=== PATIENT | male | born 1950 ===

== ENCOUNTER 2016-06-10 12:28 | Inpatient (IN) | payer MEDICAID, OTHER ==
[2016-06-10] MEDS ORDERED: Sodium Chloride 0.9% 1,000 ML IV ONE ×2 (12:54)
[2016-06-10 13:24] LABS: VENOUS BLOOD GAS BASE EXCESS 3.6 mmol/L (0.0-2.0); VENOUS BLOOD GAS PCO2 59 mmHg (40-60); VENOUS BLOOD PH 7.33 (7.32-7.43)
[2016-06-10] MEDS ORDERED: Sodium Chloride 0.9% 2,000 ML ONE (13:28)
[2016-06-10] MEDS ORDERED: MOXIFLOXACIN 400 MG/250 ML IVPB STA (13:33)
[2016-06-10] MEDS ORDERED: NS IVPB STA (13:33)
[2016-06-10] MEDS ORDERED: CEFEPIME IVPB STA (13:34)
[2016-06-10] MEDS ORDERED: DEXTROSE IVPB STA (13:34)
--- NOTE | 2016-06-10 13:35 | C.PDOC ---
History Of Present Illness A 65 year old male patient presents to the ED c/o experiencing increased fatigue , cough, and subjective fever for 3 days, according to son. Patient reports that he came back from [place] (driving) 2 days ago due to his brothers . Patient notes that the symptoms are progressively getting worse and was unable to get out of bed today where EMS was called. Patient denies trauma, nausea, vomiting, SOB, LOC, dizziness. Time Seen by Provider: 06/10/16 12:43 Chief Complaint (Nursing): Shortness Of Breath History Per: Patient, Family (son) History/Exam Limitations: clinical condition Onset/Duration Of Symptoms: Days Current Symptoms Are (Timing): Still Present Initiating Event: Emotionaly Upset Severity: Moderate Associated Symptoms: Fever. denies: Dizziness Past Medical History Reviewed: Historical Data, Nursing Documentation, Vital Signs Vital Signs: Last Vital Signs Temp 101 F H 06/10/16 16:28 Pulse 110 H 06/10/16 18:15 Resp 24 06/10/16 18:15 BP 158/64 H 06/10/16 18:15 Pulse Ox 93 L 06/10/16 18:15 - Medical History PMH: COPD, Emphysema, HTN, Hypercholesterolemia Family History: States: Unknown Family Hx - Social History Hx Alcohol Use: No Hx Substance Use: No Review Of Systems Except As Marked, All Systems Reviewed And Found Negative. Constitutional: Positive for: Fever, Weakness (General fatigue). Negative for: Other (Trauma) Respiratory: Positive for: Cough. Negative for: Shortness of Breath Gastrointestinal: Negative for: Nausea, Vomiting Neurological: Negative for: Dizziness, Other (LOC) Psych: Negative for: Suicidal ideation Physical Exam - Physical Exam Appears: Non-toxic, In Acute Distress Skin: Warm, Dry Head: Atraumatic, Normacephalic Eye(s): bilateral: Normal Inspection Cardiovascular: Rhythm Regular, No Murmur Respiratory: No Rales, Rhonchi (Few scattered Rhonchi), No Wheezing Gastrointestinal/Abdominal: Soft, No Tenderness, No Guarding Neurological/Psych: Oriented x3, Slow To Respond With Command Gait: Unable To Assess ED Course And Treatment - Laboratory Results Result Diagrams: 06/10/16 13:21 06/10/16 13:21 ECG Rhythm: Sinus Tachycardia ECG Interpretation: Normal O2 Sat by Pulse Oximetry: 95 (Room air) Pulse Ox Interpretation: Normal - Radiology CXR: Interpreted by Me CXR Interpretation: No: Infiltrates Medical Decision Making Medical Decision Making: Plans: Code sepsis called cultured done abx ordered -EKG -Blood labs -CXR -IV fluids -Reassess and disposition Lactate .9 Pt did have long car ride but symptoms more c/w infection process not PE Pt remained stable in the ED cxr neg ua neg, no source for the fever and elvated wbc's Results discussed with son. Also discussed with dr Villalta - plan admit Disposition - Disposition Disposition: HOSPITALIZED Disposition Time: 16:30 Condition: SERIOUS - Clinical Impression Clinical Impression: Fever, Weakness - Scribe Statement The provider has reviewed the documentation as recorded by the Scribe Shira penn All medical record entries made by the Scribe were at my direction and personally dictated by me. I have reviewed the chart and agree that the record accurately reflects my personal performance of the history, physical exam, medical decision making, and the department course for this patient. I have also personally directed, reviewed, and agree with the discharge instructions and disposition.
[2016-06-10 13:36] LABS: BASO # 0.1 K/uL (0.0-0.2); BASO % 0.4 % (0.0-2.0); EOS % 0.2 % (0.0-4.0); HEMATOCRIT 40.3 % (35.0-51.0); LYMPH # 1.2 K/uL (1.0-4.3); LYMPH % 8.5 % (20.0-40.0); MEAN CELL VOLUME 92.7 fL (80.0-94.0); MEAN CORPUSCULAR HEMOGLOBIN 30.4 pg (27.0-31.0); MEAN CORPUSCULAR HGB CONC 32.8 g/dL (33.0-37.0); MEAN PLATELET VOLUME 7.9 fL (7.2-11.7); MONO # 1.7 K/uL (0.0-0.8); MONO % 11.9 % (0.0-10.0); PLATELET COUNT 270 K/uL (130-400); WHITE BLOOD COUNT 14.4 K/uL (4.8-10.8)
[2016-06-10 13:44] LABS: CHLORIDE 96 mmol/L (98-107); INR 1.2; POTASSIUM 3.8 mmol/L (3.6-5.2); SODIUM 138 mmol/L (132-148)
[2016-06-10 13:46] LABS: ALB/GLOB RATIO 1.2 (1.0-2.1); AST/SGOT 17 U/L (17-59); CARBON DIOXIDE 29 mmol/L (22-30); GFR AFRICAN-AMERICAN > 60; TOTAL PROTEIN 6.8 g/dL (6.3-8.3)
[2016-06-10 13:47] LABS: ALKALINE PHOSPHATASE 76 U/L (38-126); ALT/SGPT 16 U/L (21-72); BLOOD UREA NITROGEN 17 mg/dL (9-20); CALCIUM 8.1 mg/dl (8.6-10.4); GLUCOSE,RANDOM 230 mg/dL (75-110)
[2016-06-10 14:04] LABS: NEUTROPHIL 75 % (50-75); REACTIVE LYMPHOCYTES 1 % (0-0); TOTAL CELLS COUNTED 100
[2016-06-10] MEDS ORDERED: Moxifloxacin IV 400mg/250ml NS 400 MG/250 ML BAG IVPB ONE ×2 (14:52→15:23)
[2016-06-10 15:03] LABS: RBC URINE 5 /hpf (0-3); URINE BACTERIA RARE (<OCC); URINE BILIRUBIN NEGATIVE (NEGATIVE); URINE BLOOD NEGATIVE (NEGATIVE); URINE COLOR Yellow (YELLOW); URINE GLUCOSE (UA) 2+ mg/dL (Normal); URINE KETONE NEGATIVE (NEGATIVE); URINE LEUKOCYTE ESTERASE NEG Leu/uL (Negative); URINE PROTEIN 2+ mg/dL (NEGATIVE); WBC URINE 4 /hpf (0-5)
[2016-06-10 15:51] LABS: VENOUS BLOOD GAS BASE EXCESS -1.1 mmol/L (0.0-2.0); VENOUS BLOOD GAS PCO2 55 mmHg (40-60); VENOUS BLOOD PH 7.29 (7.32-7.43)
[2016-06-10] MEDS ORDERED: Albuterol-Ipratrop 3 mg / 0.5 (3 ml) UD ONE (16:07)
[2016-06-10] MEDS ORDERED: Albuterol-Ipratrop 3 mg / 0.5 (3 ml) UD INH STA (16:10)
--- NOTE | 2016-06-10 16:13 | RAD ---
HISTORY: Sepsis Patient COMPARISON: None available. TECHNIQUE: Chest, one view. FINDINGS: LUNGS: Bilateral hilar prominence. No focal consolidation. Please note that chest x-ray has limited sensitivity for the detection of pulmonary masses. PLEURA: No significant pleural effusion identified. No definite pneumothorax . CARDIOVASCULAR: The cardiomediastinal silhouette appears within normal limits of size. OSSEOUS STRUCTURES: No acute osseous abnormality identified. VISUALIZED UPPER ABDOMEN: Unremarkable. OTHER FINDINGS: None. IMPRESSION: Bilateral hilar prominence. No focal consolidation, significant pleural effusion, or definite pneumothorax identified.
--- NOTE | 2016-06-10 16:22 | CP.PCM.HP ---
<Aysha Beatty - Last Filed: 06/10/16 17:05> History of Present Illness - History of Present Illness History of Present Illness: CC: "fatigue, emotional distress and cough" HPI: Patient is a 65 year old male with PMHx of COPD, hypercholesterolemia, HTN and DM presenting for fatigue and cough. Most of the history is per patient's son as patient is currently getting a nebulizer treatment and is having trouble keeping his eyes open. Patient returned from his brother's in [place] yesterday. Patient has been very tired and emotionally distressed. Patient had bodyaches yesterday. Patient started coughing yesterday. Cough is productive of yellow phlegm. Patient has had chills and was sweating last night in bed. Patient usually can walk 10 blocks without getting short of breath but has not been able to walk any blocks for past few days. Patient has never been intubated. Patient had flu vaccine this year. Patient noted later that he has not been feeling well ofr a few weeks but has not seen a doctor. Patient's says one of the boarders has been sick. Also of note, patient wet the bed last night. Patient wants nicotine patch to help him quit smoking. Patient denies vision change, headache, chest pain, palpitation, hemoptysis, abdominal pain, nausea, vomiting, diarrhea, constipation, dysuria, rash, back pain and easy bleeding. SonScottie, is person to contact: [phone] PMD: Garret Allergies: NKDA PMHx: as above PSHx: inguinal hernia repairSocial History: denies ETOH, denies illicit drug use , smokes 10-12 cigarettes per day for 50 years Family Hx: [place] in unknown family member, epilepsy in father, stroke in mother, pancreatic cancer in sister, lung CA in brother Present on Admission - Present on Admission Any Indicators Present on Admission: No Review of Systems - Constitutional Constitutional: Chills, Fatigue, Fever, Night Sweats, Weakness. absent: Headache - EENT Eyes: absent: Blurred Vision, Change in Vision, Loss of Vision Ears: absent: Dizziness Nose/Mouth/Throat: absent: Sore Throat - Cardiovascular Cardiovascular: absent: Chest Pain, Palpitations - Respiratory Respiratory: Cough, Dyspnea, Dyspnea on Exertion, Wheezing, Excessive Mucous Production, Change in Mucous Color. absent: Hemoptysis, Pain with Coughing - Gastrointestinal Gastrointestinal: absent: Abdominal Pain, Constipation, Diarrhea, Hematochezia, Nausea, Vomiting - Genitourinary Genitourinary: absent: Dysuria, Urinary Frequency - Musculoskeletal Musculoskeletal: absent: Back Pain - Integumentary Integumentary: absent: Rash, Skin Pain - Neurological Neurological: absent: Dizziness, Headaches - Endocrine Endocrine: absent: Fatigue, Palpitations - Hematologic/Lymphatic Hematologic: absent: Easy Bleeding Past Patient History - Past Medical History & Family History Past Medical History?: Yes Pertinent Family History: [place] in unknown family member, epilepsy in father, stroke in mother, pancreatic cancer in sister, lung CA in brother - Past Social History Smoking Status: Heavy Smoker > 10 Cigarettes Daily Alcohol: None Drugs: Denies Home Situation {Lives}: With Family - CARDIAC Hx Hypercholesterolemia: Yes Hx Hypertension: Yes - PULMONARY Hx Chronic Obstructive Pulmonary Disease (COPD): Yes Hx Emphysema: Yes - ENDOCRINE/METABOLIC Hx Endocrine Disorders: Yes Hx Diabetes Mellitus Type 1: Yes - PSYCHIATRIC Hx Substance Use: No - SURGICAL HISTORY Hx Surgeries: Yes Hx Herniorrhaphy: Yes (INGUINAL) Meds Allergies/Adverse Reactions: Allergies Allergy/AdvReac Type Severity Reaction Status Date / Time No Known Allergies Allergy Verified 06/10/16 13:13 Physical Exam - Constitutional Appears: Non-toxic - Head Exam Head Exam: NORMAL INSPECTION - Eye Exam Eye Exam: Normal appearance - ENT Exam ENT Exam: Mucous Membranes Moist - Respiratory Exam Respiratory Exam: Accessory Muscle Use, Rhonchi, Wheezes, Respiratory Distress. absent: Rales - Cardiovascular Exam Cardiovascular Exam: REGULAR RHYTHM, +S1, +S2. absent: Gallop, JVD, Rubs, Systolic Murmur - GI/Abdominal Exam GI & Abdominal Exam: Normal Bowel Sounds, Soft. absent: Distended, Firm, Tenderness - Extremities Exam Extremities exam: Negative for: pedal edema - Neurological Exam Neurological exam: Alert, Oriented x3 - Psychiatric Exam Psychiatric exam: Normal Affect, Normal Mood - Skin Skin Exam: Normal Color, Warm Results - Vital Signs Recent Vital Signs: Last Vital Signs Temp 101.8 F H 06/10/16 13:03 Pulse 115 H 06/10/16 16:12 Resp 22 06/10/16 16:12 BP 148/90 06/10/16 16:12 Pulse Ox 95 06/10/16 16:12 - Labs Result Diagrams: 06/10/16 13:21 06/10/16 13:21 Labs: Laboratory Results - last 24 hr 06/10/16 06/10/16 06/10/16 12:45 13:20 13:21 WBC 14.4 H RBC 4.35 L Hgb 13.2 Hct 40.3 MCV 92.7 MCH 30.4 MCHC 32.8 L RDW 14.0 Plt Count 270 MPV 7.9 Neut % (Auto) 79.0 H Lymph % (Auto) 8.5 L Wise % (Auto) 11.9 H Eos % (Auto) 0.2 Baso % (Auto) 0.4 Neut # 11.4 H Lymph # 1.2 Wise # 1.7 H Eos # 0.0 Baso # 0.1 Neutrophils % (Manual) 75 Band Neutrophils % 11 H* Lymphocytes % (Manual) 5 L Reactive Lymphs % 1 H Monocytes % (Manual) 8 Platelet Estimate Normal RBC Morphology Normal PT INR APTT pO2 65 H VBG pH 7.33 VBG pCO2 59 VBG HCO3 27.6 VBG Total CO2 32.9 H VBG O2 Sat (Calc) 95.3 H VBG Base Excess 3.6 H VBG Potassium 3.7 Sodium 136.0 Chloride 101.0 Glucose 235 H Lactate 0.9 Potassium Carbon Dioxide Anion Gap BUN Creatinine Est GFR ( Amer) Est GFR (Non-Af Amer) POC Glucose (mg/dL) 239 H Random Glucose Calcium Magnesium Total Bilirubin AST ALT Alkaline Phosphatase Total Protein Albumin Globulin Albumin/Globulin Ratio Venous Blood Potassium 3.7 Urine Color Urine Clarity Urine pH Ur Specific [place] Urine Protein Urine Glucose (UA) Urine Ketones Urine Blood Urine Nitrate Urine Bilirubin Urine Urobilinogen Ur Leukocyte Esterase Urine WBC (Auto) Urine RBC (Auto) Amorphous Sediment Urine Bacteria Hyaline Casts 06/10/16 06/10/16 06/10/16 13:21 13:21 14:50 WBC RBC Hgb Hct MCV MCH MCHC RDW Plt Count MPV Neut % (Auto) Lymph % (Auto) Wise % (Auto) Eos % (Auto) Baso % (Auto) Neut # Lymph # Wise # Eos # Baso # Neutrophils % (Manual) Band Neutrophils % Lymphocytes % (Manual) Reactive Lymphs % Monocytes % (Manual) Platelet Estimate RBC Morphology PT 12.9 H INR 1.2 APTT 30 pO2 VBG pH VBG pCO2 VBG HCO3 VBG Total CO2 VBG O2 Sat (Calc) VBG Base Excess VBG Potassium Sodium 138 Chloride 96 L Glucose Lactate Potassium 3.8 Carbon Dioxide 29 Anion Gap 18 BUN 17 Creatinine 0.7 L Est GFR ( Amer) > 60 Est GFR (Non-Af Amer) > 60 POC Glucose (mg/dL) Random Glucose 230 H Calcium 8.1 L Magnesium 2.0 Total Bilirubin 1.0 AST 17 ALT 16 L Alkaline Phosphatase 76 Total Protein 6.8 Albumin 3.7 Globulin 3.0 Albumin/Globulin Ratio 1.2 Venous Blood Potassium Urine Color Yellow Urine Clarity Hazy Urine pH 5.0 Ur Specific [place] 1.019 Urine Protein 2+ H Urine Glucose (UA) 2+ H Urine Ketones Negative Urine Blood Negative Urine Nitrate Negative Urine Bilirubin Negative Urine Urobilinogen 2.0 Ur Leukocyte Esterase Neg Urine WBC (Auto) 4 Urine RBC (Auto) 5 H Amorphous Sediment Rare H Urine Bacteria Rare Hyaline Casts 3-5 H 06/10/16 15:35 WBC RBC Hgb Hct MCV MCH MCHC RDW Plt Count MPV Neut % (Auto) Lymph % (Auto) Wise % (Auto) Eos % (Auto) Baso % (Auto) Neut # Lymph # Wise # Eos # Baso # Neutrophils % (Manual) Band Neutrophils % Lymphocytes % (Manual) Reactive Lymphs % Monocytes % (Manual) Platelet Estimate RBC Morphology PT INR APTT pO2 35 VBG pH 7.29 L VBG pCO2 55 VBG HCO3 23.0 VBG Total CO2 28.1 H VBG O2 Sat (Calc) 70.3 H VBG Base Excess -1.1 L VBG Potassium 3.3 L Sodium 142.0 Chloride 111.0 H Glucose 177 H Lactate 0.7 Potassium Carbon Dioxide Anion Gap BUN Creatinine Est GFR ( Amer) Est GFR (Non-Af Amer) POC Glucose (mg/dL) Random Glucose Calcium Magnesium Total Bilirubin AST ALT Alkaline Phosphatase Total Protein Albumin Globulin Albumin/Globulin Ratio Venous Blood Potassium 3.3 L Urine Color Urine Clarity Urine pH Ur Specific [place] Urine Protein Urine Glucose (UA) Urine Ketones Urine Blood Urine Nitrate Urine Bilirubin Urine Urobilinogen Ur Leukocyte Esterase Urine WBC (Auto) Urine RBC (Auto) Amorphous Sediment Urine Bacteria Hyaline Casts Assessment & Plan - Assessment and Plan (Free Text) Assessment: Sepsis [id number], tachycardic in 100s, WBC 14.4 with bandemia of 11 and left shift Lactic acid 0.9 --> 0.7 CXR 06/10/16- bilateral hilar prominence NS 1L bolus x2 NS @75cc/hr F/U Lactic Acid in 3 hours F/U blood culture and sputum culture Admit to telemetry Dyspnea Pneumonia v. COPD exacerbation v. PE v. Lung CA F/U procalcitonin F/U CTA O2 3L via [place] Pulmonology consult - Dr. Galaviz Pneumonia CXR 06/10/16- bilateral hilar prominence F/U CTA Avelox 400mg IVPB daily Obstructive Sleep Apnea CPAP to be titrated by respiratory therapy COPD Duonebs 3ml INH RQ4 EDIE Advair 250/50mg INH BID Singulair 10mg PO HS Spiriva 18mcg INH daily (patient takes albuterol and flovent inhaler at home) Tobacco abuse Nictoine 21/day TD daily H/O HTN Continue home meds: nifedipine 30mg PO daily, lasix 20mg PO daily, atenolol 25mg PO daily, lisinopril 20mg PO daily H/O DM Continue 2 home insulins: Lispro 15U SC QAM Lantus 30U SC QHS RISS Accuchecks F/U HgbA1C Holding home metforming 1000mg PO BID H/O hyperlipidemia Continue equivalent of home med lipitor 40mg PO daily Prophylaxis Protonix 40mg PO daily Hep 5000U SC Q8 SCDs <Ernestina Villalta V - Last Filed: 06/10/16 21:12> Results - Vital Signs Recent Vital Signs: Last Vital Signs Temp 99.9 F H 06/10/16 19:21 Pulse 108 H 06/10/16 20:37 Resp 22 06/10/16 19:21 BP 153/66 H 06/10/16 19:21 Pulse Ox 91 L 06/10/16 19:21 - Labs Result Diagrams: 06/10/16 13:21 06/10/16 13:21 Labs: Laboratory Results - last 24 hr 06/10/16 06/10/16 06/10/16 17:14 18:26 19:15 D-Dimer, Quantitative 369 H Puncture Site Rra pCO2 50 H pO2 64 L HCO3 24.7 ABG pH 7.33 L ABG Total CO2 27.9 ABG O2 Saturation 94.2 L ABG Base Excess -0.1 ABG Hemoglobin 11.5 L ABG Carboxyhemoglobin 2.4 H POC ABG HHb (Measured) 5.5 H ABG Methemoglobin 2.0 [place]on Test Pos Hgb O2 Saturation 90.1 L Liter Flow 3.0 POC Glucose (mg/dL) 217 H Attending/Attestation - Attestation I have personally seen and examined this patient.: Yes I have fully participated in the care of the patient.: Yes I have reviewed all pertinent clinical information: Yes Notes (Text): patient seen, examined, and case discussed with day-time resident. patient seen in [facility] bed 12 on 06/10/16 approximately 4:30PM with patient's and son at bedside. Patient reports three week duration of shortness of breathe, productive cough, non-bloody, with associated "intentional weight loss" about 10lbs in one month. Patient reporting fatigue and dyspnea on exertion, recently flew back from [place] from his brother's . Patient denies recent hospitalization, reports one of the boarders in house is sick, possibly with the flu, denies bug/ bites, denies rash. Patient has history of COPD, use Albuterol and Fluticason, reports he sees senior php developer in [facility], has follow-up in July. Patient also reports he has a history of LYLE, but does not use Bipap/Cpap. Patient also reports he is a current smoker. Discussed admitting orders with day-time resident. Pulmonary consult (Dr. Gar) on board Ordered for CT Chest to evaluate pneumonia, COPD Infectious disease consult (Dr. Hull) on board-->recommended for high dose Rocephin and Azithromycin, and order for influenzae Assessment/Plan 1) Sepsis * Criteria: [id number], tachycardic in 100s, WBC 14.4 with bandemia of 11 and left shift; Criteria: multlobar pneumonia * Lactic acid 0.9 --> 0.7-->f/u lactic acid * CXR 06/10/16- bilateral hilar prominence * NS 1L bolus x2 in the ED * NS @75cc/hr * F/U Lactic Acid in 3 hours * F/U blood culture X2, sputum culture, CT Chest * Admit to telemetry * In the ED, received Maxipime and Avelox; started on Avelox 400mg IV daily and Rocephin 2gram IV daily 2) Pneumonia * CXR 06/10/16- bilateral hilar prominence * CT Angio (06/10/16): suspicious multifocal infectious pneumonia in the lungs b/ l; mild bilateral hilar lymphadenopathy, emphysematous changes * Avelox 400mg IVPB daily and Rocephin 2gram IVq daily * Strep pneumonaie, legionella, mycoplasma igm, influenzae * Florastor 250mg PO bid * Pulmonary (Dr. Lemus) on board * Infectious Disease (Dr. Hull) on board 3) Dyspnea * Differentials to include: Pneumonia v. COPD exacerbation v. PE v. Lung CA * CT Angio (06/10/16): suspicious multifocal infectious pneumonia in the lungs b/ l; mild bilateral hilar lymphadenopathy, emphysematous changes * F/U procalcitonin * O2 3L via [place] * Pulmonology consult - Dr. Galaviz 4) x of Obstructive Sleep Apnea * CPAP to be titrated by respiratory therapy 5) COPD * Duonebs 3ml INH RQ4 EDIE * Advair 250/50mg INH BID * Singulair 10mg PO HS * Spiriva 18mcg INH daily * (patient takes albuterol and flovent inhaler at home) * Pulmonary (Dr. Lemus) on board-->help appreciated * Tobacco counselling to be provided 6) Tobacco abuse * Nictoine 21/day TD daily 7) H/O HTN * Continue home meds: nifedipine 30mg PO daily, lasix 20mg PO daily, discontinue atenolol 25mg PO daily, lisinopril 20mg PO daily * Monitor vital signs 8)H/O DM Continue 2 home insulins: * Lispro 15U SC QAM * Lantus 30U SC QHS * RISS * Accuchecks QAC and HS * F/U HgbA1C in AM * Holding home metformin 1000mg PO BID 9) H/O hyperlipidemia * Continue equivalent of home med lipitor 40mg PO daily 10) Prophylaxis * Protonix 40mg PO daily * Hep 5000U SC Q8 * SCDS * PT/OT eval * Oxygen via nasal cannula vs non-way breather
[2016-06-10] MEDS ORDERED: Sodium Chloride 0.9% 1,000 ML IV SCH (17:00)
[2016-06-10] MEDS ORDERED: Sodium Chloride 0.9% 1,000 ML ONE (17:31)
[2016-06-10] MEDS ORDERED: Iodixanol 320 MG/ML 100 ML BOTTLE IV ONE (18:24)
--- NOTE | 2016-06-10 18:31 | CP.PCM.CON ---
History of Present Illness - History of Present Illness History of Present Illness: A 65 year old male patient presents to the ED c/o experiencing increased fatigue , cough, and subjective fever for 3 days. Patient reports that he came back from [place] (driving) 2 days ago due to brothers . Patient notes that the symptoms are progressively getting worse and was unable to get out of bed today where EMS was called. Review of Systems - Review of Systems All systems: reviewed and no additional remarkable complaints except - Cardiovascular Cardiovascular: Dyspnea - Respiratory Respiratory: Cough, Dyspnea Past Patient History - Past Medical History & Family History Past Medical History?: Yes - Past Social History Smoking Status: Heavy Smoker > 10 Cigarettes Daily Alcohol: None Drugs: Denies Home Situation {Lives}: With Family - CARDIAC Hx Hypercholesterolemia: Yes Hx Hypertension: Yes - PULMONARY Hx Chronic Obstructive Pulmonary Disease (COPD): Yes Hx Emphysema: Yes - ENDOCRINE/METABOLIC Hx Endocrine Disorders: Yes Hx Diabetes Mellitus Type 1: Yes - PSYCHIATRIC Hx Substance Use: No - SURGICAL HISTORY Hx Surgeries: Yes Hx Herniorrhaphy: Yes (INGUINAL) Meds Allergies/Adverse Reactions: Allergies Allergy/AdvReac Type Severity Reaction Status Date / Time No Known Allergies Allergy Verified 06/10/16 13:13 - Medications Medications: Current Medications Acetaminophen (Tylenol 325mg Tab) 650 mg PO Q6H PRN PRN Reason: Fever >100.4 F Last Admin: 06/10/16 16:27 Dose: 650 mg Albuterol/Ipratropium (Duoneb 3 Mg/0.5 Mg (3 Ml) Ud) 3 ml INH RQ4 EDIE Atenolol (Tenormin) 25 mg PO DAILY EDIE Furosemide (Lasix) 20 mg PO DAILY EDIE Heparin Sodium (Porcine) (Heparin) 5,000 units SC Q8 EDIE Moxifloxacin HCl (Avelox Iv 400mg/250ml Ns) 400 mg in 250 mls @ 167 mls/hr IVPB Q24H EDIE Sodium Chloride (Sodium Chloride 0.9%) 1,000 mls @ 75 mls/hr IV .[id number] EDIE Last Admin: 06/10/16 17:30 Dose: 75 mls/hr Insulin Aspart (Novolog) 15 unit SC QAM EDIE Insulin Glargine (Lantus) 30 unit SC HS EDIE Insulin Human Regular (Novolin R) 0 unit SC ACHS EDIE PRN Reason: Protocol Lisinopril (Zestril) 20 mg PO DAILY [facility] Montelukast Sodium (Singulair) 10 mg PO HS [facility] Nicotine (Nicoderm Cq) 1 patch TD DAILY [facility] Nifedipine (Procardia Xl) 30 mg PO DAILY EDIE Pantoprazole Sodium (Protonix Ec Tab) 40 mg PO DAILY [facility] Rosuvastatin Calcium (Crestor) 20 mg PO HS [facility] Tiotropium [place]roy (Spiriva) 18 mcg INH RQ24 EDIE Physical Exam - Head Exam Head Exam: ATRAUMATIC, NORMOCEPHALIC - Eye Exam Eye Exam: Normal appearance - ENT Exam ENT Exam: Mucous Membranes Moist - Respiratory Exam Respiratory Exam: Decreased Breath Sounds - Cardiovascular Exam Cardiovascular Exam: +S1, +S2 - GI/Abdominal Exam GI & Abdominal Exam: Normal Bowel Sounds - Rectal Exam Rectal Exam: Deferred - Neurological Exam Neurological exam: Alert, Oriented x3 - Psychiatric Exam Psychiatric exam: Depressed - Skin Skin Exam: Intact Results - Vital Signs Recent Vital Signs: Last Vital Signs Temp 101 F H 06/10/16 16:28 Pulse 110 H 06/10/16 18:15 Resp 24 06/10/16 18:15 BP 158/64 H 06/10/16 18:15 Pulse Ox 95 06/10/16 18:27 - Labs Result Diagrams: 06/10/16 13:21 06/10/16 13:21 Labs: Laboratory Results - last 24 hr 06/10/16 17:14 D-Dimer, Quantitative 369 H Assessment & Plan (1) Fever Status: Acute (2) COPD exacerbation Status: Acute (3) Pulmonary embolism Status: Suspected
[2016-06-10 19:22] LABS: ABG ALLEN TEST POS; ARTERIAL BLOOD HGB O2 SAT 90.1 % (95.0-98.0); CARBOXYHEMOGLOBIN 2.4 % (0.5-1.5); DRAW SITE RRA; HHB 5.5 % (0.0-5.0)
--- NOTE | 2016-06-10 19:47 | CT ---
EXAM: CT Angiography Chest With Intravenous Contrast CLINICAL HISTORY: 65 years old, male; Condition or disease; Lung condition and disease; Pneumonia and pulmonary embolism; Additional info: Rule out pe, suspicion for b/l hilar pneumonia TECHNIQUE: Axial computed tomographic angiography images of the chest with intravenous contrast using pulmonary embolism protocol. This CT exam was performed using one or more of the following dose reduction techniques: automated exposure control, adjustment of the mA and/or kV according to patient size, and/or use of iterative reconstruction technique. MIP reconstructed images were created and reviewed. Coronal and sagittal reformatted images were created and reviewed. CONTRAST: 100 mL of VISIPAQUE 320 administered intravenously. EXAM DATE/TIME: 06/10/2016 4:59 PM COMPARISON: No relevant prior studies available. FINDINGS: PULMONARY ARTERIES: Contrast opacification of the pulmonary arteries is adequate, and there are no filling defects seen to suggest pulmonary embolism. AORTA: No evidence of aortic dissection. LUNGS: Multiple clusters of tree-in-bud opacities and small ill-defined nodules seen in the lungs bilaterally. In an acute setting, the findings are most likely due to a multifocal infectious bronchiolitis/pneumonia. Moderate diffuse emphysematous changes. No evidence of significant focal consolidation in the lungs. No evidence of diffuse pulmonary vascular congestion. PLEURAL SPACE: No pneumothorax or pleural effusions seen. HEART: Coronary artery calcification. BONES/JOINTS: No acute bony abnormality identified. LYMPH NODES: Mild bilateral hilar lymphadenopathy.There are also multiple small mediastinal lymph nodes seen. No evidence of diffuse pathologic lymphadenopathy. ADRENALS: 3 cm left adrenal lesion. This has imaging features suggestive of a benign lesion, however, it is indeterminate in nature on this exam. Recommend follow-up CT or MR in 12 months. Alternatively, if there is a history of malignancy, consider further evaluation with PET, unenhanced CT or MR. IMPRESSION: - Findings suspicious for a multifocal infectious bronchiolitis/pneumonia in the lungs bilaterally. Followup is recommended, as this has a multinodular component. - Otherwise, no evidence of significant acute process. No evidence of pulmonary embolism. - Mild bilateral hilar lymphadenopathy. This may be reactive in etiology. Again, followup is recommended. - Emphysematous changes. - Incidental left adrenal lesion. See recommendations above. - See above for remaining findings.
[2016-06-10] MEDS: Albuterol-Ipratrop 3 mg / 0.5 (3 ml) UD INH SCH (20:36)
[2016-06-10 21:44] LABS: LEGIONELLA AG URINE NEGATIVE (NEGATIVE)
[2016-06-10] MEDS ORDERED: (Lantus) Insulin Glargine, Recombinant SC SCH (22:00)
[2016-06-10 22:08] LABS: PROCALCITONIN SERUM 0.16 NG/ML (0.19-0.49)
[2016-06-10] MEDS: (Novolin R) Insulin Human Regular 100 units/ml vial SC SCH (22:15)
[2016-06-10] MEDS: Sodium Chloride 0.9% 1,000 ML IV SCH (22:29)
[2016-06-11] MEDS: Albuterol-Ipratrop 3 mg / 0.5 (3 ml) UD INH SCH ×6 (01:00→19:44)
[2016-06-11] MEDS: Sodium Chloride 0.9% 1,000 ML IV SCH ×2 (05:18→22:50)
--- NOTE | 2016-06-11 07:38 | CP.PCM.PN ---
<Ernestina Villalta V - Last Filed: 06/11/16 18:23> Objective - Vital Signs/Intake and Output Vital Signs (last 24 hours): Temp Pulse Resp BP Pulse Ox 101.6 F H 91 H 20 162/83 H 95 06/11/16 16:00 06/11/16 16:00 06/11/16 16:00 06/11/16 16:00 06/11/16 16:00 Intake and Output: 06/11/16 06/11/16 06:59 18:59 Intake Total 1800 Output Total 600 Balance 1200 - Medications Medications: Current Medications Acetaminophen (Tylenol 325mg Tab) 650 mg PO Q6H PRN PRN Reason: Fever >100.4 F Last Admin: 06/11/16 17:04 Dose: 650 mg Albuterol/Ipratropium (Duoneb 3 Mg/0.5 Mg (3 Ml) Ud) 3 ml INH RQ4 [facility] Last Admin: 06/11/16 16:34 Dose: 3 ml Furosemide (Lasix) 20 mg PO DAILY [facility] Last Admin: 06/11/16 10:32 Dose: 20 mg Heparin Sodium (Porcine) (Heparin) 5,000 units SC Q8 [facility] Last Admin: 06/11/16 06:06 Dose: 5,000 units Moxifloxacin HCl (Avelox Iv 400mg/250ml Ns) 400 mg in 250 mls @ 167 mls/hr IVPB Q24H [facility] Last Admin: 06/11/16 17:45 Dose: 167 mls/hr Ceftriaxone Sodium 2 gm/ (Sodium Chloride) 100 mls @ 100 mls/hr IVPB DAILY [facility] Last Admin: 06/11/16 11:01 Dose: 100 mls/hr Sodium Chloride (Sodium Chloride 0.9%) 1,000 mls @ 100 mls/hr IV .Q10H [facility] Last Admin: 06/11/16 05:18 Dose: 100 mls/hr Insulin Glargine (Lantus) 30 unit SC HS [facility] Last Admin: 06/10/16 22:29 Dose: 30 units Insulin Human Regular (Novolin R) 0 unit SC ACHS [facility] PRN Reason: Protocol Last Admin: 06/11/16 18:02 Dose: 3 unit Lisinopril (Zestril) 20 mg PO DAILY [facility] Last Admin: 06/11/16 10:28 Dose: 20 mg Montelukast Sodium (Singulair) 10 mg PO HS [facility] Last Admin: 06/10/16 22:28 Dose: 10 mg Nebivolol (Bystolic) 2.5 mg PO DAILY [facility] Last Admin: 06/11/16 10:28 Dose: 2.5 mg Nicotine (Nicoderm Cq) 1 patch TD DAILY [facility] Last Admin: 06/11/16 10:28 Dose: 1 patch Pantoprazole Sodium (Protonix Ec Tab) 40 mg PO DAILY [facility] Last Admin: 06/11/16 10:29 Dose: 40 mg Rosuvastatin Calcium (Crestor) 20 mg PO HS [facility] Last Admin: 06/10/16 22:28 Dose: 20 mg Tiotropium [place] (Spiriva) 18 mcg INH RQ24 [facility] Last Admin: 06/11/16 10:55 Dose: Not Given - Labs Labs: 06/11/16 08:29 06/11/16 08:29 PT 12.9 SECONDS (9.7-12.2) H 06/10/16 13:21 INR 1.2 06/10/16 13:21 APTT 30 SECONDS (21-34) 06/10/16 13:21 Attending/Attestation - Attestation I have personally seen and examined this patient.: Yes I have fully participated in the care of the patient.: Yes I have reviewed all pertinent clinical information, including history, physical exam and plan: Yes Notes (Text): Patient seen, examined, and case discussed with day-time resident. Patient clinically improved. Patient is awake, alert, appears less lethargic. Patient is conversant and less flushed compared to yesterday. Patient is spiking fevers. Awaiting blood, sputum, and urine cultures. Emphasized to the patient he will need to continue IV antibiotics to cover for multilobar pneumonia Re-emphasized to the patient, will need to stop smoking. Patient's at bedside who helped to re-emphasized to the patient. Assessment/Plan 1) Sepsis * Criteria: [id number], tachycardic in 100s, WBC 14.4 with bandemia of 11 and left shift; Criteria: multillobar pneumonia * Lactic acid 0.9 --> 0.7--> 0.9 * Procalcitonin: 0.19 (low) * CXR 06/10/16- bilateral hilar prominence * NS 1L bolus x2 in the ED * NS @100cc/hr * F/U blood culture X2, sputum culture * Admit to telemetry * In the ED, received Maxipime and Avelox * Abx: Avelox 400mg IV daily and Rocephin 2gram IV daily (active since 06/10/16) * Florastor 250mg PO bid * CT Angio (06/10/16): multifocal infectious bronchiolitis/pneumonia in the lungs bilaterally, no evidence of PE, mild bilateral hilar lymphadenopathy. emphysematous changes, incidental left adrenal lesion * Negative flu, negative Strep, negative legionella, negative Mycoplasma IgM 2) Pneumonia * CXR 06/10/16- bilateral hilar prominence * CT Angio (06/10/16): suspicious multifocal infectious pneumonia in the lungs b/ l; mild bilateral hilar lymphadenopathy, emphysematous changes * Avelox 400mg IVPB daily and Rocephin 2gram IVq daily (active since 06/10/16) * Florastor 250mg PO bid * Pulmonary (Dr. Lemus) on board * Infectious Disease (Dr. Hull) on board * Negative flu, negative Strep, negative legionella, negative Mycoplasma IgM 3) Dyspnea * Differentials to include: Pneumonia v. COPD exacerbation v. PE v. Lung CA * CT Angio (06/10/16): suspicious multifocal infectious pneumonia in the lungs b/ l; mild bilateral hilar lymphadenopathy, emphysematous changes * Procalcitonin: 0.16 (low) * O2 3L via [place] * Pulmonology consult - Dr. Galaviz 4) Hx of Obstructive Sleep Apnea * CPAP to be titrated by respiratory therapy 5) COPD * Duonebs 3ml INH RQ4 [facility] * Advair 250/50mg INH BID * Singulair 10mg PO HS * Spiriva 18mcg INH daily * (patient takes albuterol and flovent inhaler at home) * Pulmonary (Dr. Lemus) on board-->help appreciated * Tobacco counselling to be provided 6) Tobacco abuse * Nictoine 21/day TD daily 7) H/O HTN * Continue home meds: lasix 20mg PO daily, Bystolic 2.5mg Po daily, lisinopril 20mg PO daily * Monitor vital signs 8)H/O DM * Uncontrolled * Hgba1c: 7.9 * increase to Lantus 35U SC QHS * RISS * Accuchecks QAC and HS * Holding home metformin 1000mg PO BID 9) H/O hyperlipidemia * Crestor 20mg subqHS * Order for lipid panel in AM 10) Prophylaxis * Protonix 40mg PO daily * Hep 5000U SC [id number] for DVT ppx * SCDS * PT/OT eval * Oxygen via nasal cannula vs non-way breather 11) Electrolyte imbalance * monitor and replete <Wendy Beckman - Last Filed: 06/11/16 20:02> Subjective - Date & Time of Evaluation Date of Evaluation: 06/11/16 Time of Evaluation: 07:23 - Subjective Subjective: PGY 1 Medicine Note- Dr. Villalta's service Pt seen and examined in no acute distress. Patient spiked a fever overnight as well as early this morning. Patient states that he was able to sleep better overnight. patient's son Scottie present bedside who shared that patient went through a similar experience when patient's sister five years ago. Patient was encouraged to consider quitting smoking to which he is unsure of at this time. Patient denies subjective chills, shortness of breath, nausea, vomiting, diarrhea or constipation at this time. Objective - Vital Signs/Intake and Output Vital Signs (last 24 hours): Temp Pulse Resp BP Pulse Ox 98.5 F 94 H 20 146/72 96 06/11/16 04:00 06/11/16 04:12 06/11/16 04:00 06/11/16 04:00 06/11/16 04:00 Intake and Output: 06/11/16 06/11/16 06:59 18:59 Intake Total 1800 Output Total 600 Balance 1200 - Medications Medications: Current Medications Acetaminophen (Tylenol 325mg Tab) 650 mg PO Q6H PRN PRN Reason: Fever >100.4 F Last Admin: 06/11/16 00:10 Dose: 650 mg Albuterol/Ipratropium (Duoneb 3 Mg/0.5 Mg (3 Ml) Ud) 3 ml INH RQ4 [facility] Last Admin: 06/11/16 05:04 Dose: 3 ml Furosemide (Lasix) 20 mg PO DAILY [facility] Heparin Sodium (Porcine) (Heparin) 5,000 units SC Q8 [facility] Last Admin: 06/11/16 06:06 Dose: 5,000 units Moxifloxacin HCl (Avelox Iv 400mg/250ml Ns) 400 mg in 250 mls @ 167 mls/hr IVPB Q24H [facility] Ceftriaxone Sodium 2 gm/ (Sodium Chloride) 100 mls @ 100 mls/hr IVPB DAILY [facility] Sodium Chloride (Sodium Chloride 0.9%) 1,000 mls @ 100 mls/hr IV .Q10H [facility] Last Admin: 06/11/16 05:18 Dose: 100 mls/hr Insulin Aspart (Novolog) 15 unit SC QAM [facility] Insulin Glargine (Lantus) 30 unit SC [facility] Last Admin: 06/10/16 22:29 Dose: 30 units Insulin Human Regular (Novolin R) 0 unit SC ACHS [facility] PRN Reason: Protocol Last Admin: 06/10/16 22:15 Dose: Not Given Lisinopril (Zestril) 20 mg PO DAILY [facility] Montelukast Sodium (Singulair) 10 mg PO HS [facility] Last Admin: 06/10/16 22:28 Dose: 10 mg Nebivolol (Bystolic) 2.5 mg PO DAILY [facility] Nicotine (Nicoderm Cq) 1 patch TD DAILY [facility] Last Admin: 06/10/16 22:53 Dose: 1 patch Pantoprazole Sodium (Protonix Ec Tab) 40 mg PO DAILY [facility] Rosuvastatin Calcium (Crestor) 20 mg PO [facility] Last Admin: 06/10/16 22:28 Dose: 20 mg Tiotropium [place] (Spiriva) 18 mcg INH RQ24 [facility] - Labs Labs: PT 12.9 SECONDS (9.7-12.2) H 06/10/16 13:21 INR 1.2 06/10/16 13:21 APTT 30 SECONDS (21-34) 06/10/16 13:21 - Constitutional Appears: No Acute Distress - Head Exam Head Exam: ATRAUMATIC, NORMAL INSPECTION, NORMOCEPHALIC - Eye Exam Eye Exam: Conjunctival injection, EOMI, Normal appearance, PERRL Pupil Exam: NORMAL ACCOMODATION Additional comments: bilateral yellow crusting on eyelids ; proptosis of left eye - ENT Exam ENT Exam: Mucous Membranes Moist - Neck Exam Neck Exam: Full ROM - Respiratory Exam Respiratory Exam: NORMAL BREATHING PATTERN. absent: Wheezes - Cardiovascular Exam Cardiovascular Exam: +S1, +S2 - GI/Abdominal Exam GI & Abdominal Exam: Soft, Normal Bowel Sounds - Extremities Exam Extremities Exam: Full ROM, Normal Capillary Refill. absent: Pedal Edema - Back Exam Back Exam: Full ROM - Neurological Exam Neurological Exam: Alert, Awake, Oriented x3 - Psychiatric Exam Psychiatric exam: Normal Affect, Normal Mood - Skin Skin Exam: Dry, Intact, Normal Color, Warm Assessment and Plan - Assessment and Plan (Free Text) Assessment: Sepsis * On admission: Fevers above 100.3, tachycardic in 100s in, WBC 14.4 with bandemia of 11 and left shift; Criteria: multilobar pneumonia * Currently still spiking fevers * Lactic acid 0.9 --> 0.7--> 0.9 * Procalcitonin: 0.19 (low) * CXR 06/10/16- bilateral hilar prominence * NS @100cc/hr * F/U blood culture X2, sputum culture * In the ED, received Maxipime and Avelox * Abx: Avelox 400mg IV daily and Rocephin 2gram IV daily (Started 06/10/16) * Florastor 250mg PO bid for gut protection * CT Angio (06/10/16): multifocal infectious bronchiolitis/pneumonia in the lungs bilaterally, no evidence of PE, mild bilateral hilar lymphadenopathy. emphysematous changes, incidental left adrenal lesion. Refer to full report * influenza, Strep, legionella, Mycoplasma IgM all negative Pneumonia * CXR 06/10/16- bilateral hilar prominence * CT Angio (06/10/16): suspicious multifocal infectious pneumonia in the lungs b/ l; mild bilateral hilar lymphadenopathy, emphysematous changes. Refer to full report * Avelox 400mg IVPB daily and Rocephin 2gm IV daily (Started 06/10/16) * Florastor 250mg PO bid * Pulmonary (Dr. Galaviz) on board. * Infectious Disease (Dr. Hull) on board. Cont IV abx and await cultures/ serologies * Negative flu, negative Strep, negative legionella, negative Mycoplasma IgM Dyspnea * Etiology includes but not limited to: Pneumonia , COPD exacerbation, PE or Lung CA * CT Angio (06/10/16): see aforementioned above * Procalcitonin: 0.16 (low) * O2 3L via [place] Hx of Obstructive Sleep Apnea * CPAP to be titrated by respiratory therapy COPD * Duonebs 3ml INH RQ4 [facility] * Advair 250/50mg INH BID * Singulair 10mg PO HS * Spiriva 18mcg INH daily * (patient takes albuterol and flovent inhaler at home) * F/U Pulm recommendations * Tobacco counselling to be provided. Patient on nicotine patch but does not appear to be interested in quitting per conversation earlier. Tobacco abuse * Nicotine 21/day TD daily * As stated above HTN * Continue home meds: lasix 20mg PO daily, Bystolic 2.5mg Po daily, lisinopril 20mg PO daily. Betablocker changed to be more selective given COPD diagnosis * Monitor DM * Uncontrolled * Hgba1c: 7.9 * Lantus increased to 35U SC QHS * RISS * Accuchecks QAC and HS * Holding home metformin 1000mg PO BID H/O hyperlipidemia * Crestor 20mg @ HS * F/U Lipid panel * Diet and exercise modifications Prophylaxis * Protonix 40mg PO daily * DVT: Hep SC Q8 * SCDS * PT/OT eval- F/U * Oxygen administration therapy, Resp Physical therapy suggested as well
[2016-06-11] MEDS: (Novolin R) Insulin Human Regular 100 units/ml vial SC SCH ×4 (08:41→22:05)
[2016-06-11 08:47] LABS: BASO # 0.1 K/uL (0.0-0.2); BASO % 0.5 % (0.0-2.0); EOS # 0.1 K/uL (0.0-0.7); EOS % 0.7 % (0.0-4.0); HEMATOCRIT 35.2 % (35.0-51.0); LYMPH # 1.3 K/uL (1.0-4.3); LYMPH % 11.8 % (20.0-40.0); MEAN CELL VOLUME 92.6 fL (80.0-94.0); MEAN CORPUSCULAR HEMOGLOBIN 30.4 pg (27.0-31.0); MEAN CORPUSCULAR HGB CONC 32.8 g/dL (33.0-37.0); MEAN PLATELET VOLUME 7.9 fL (7.2-11.7); MONO # 1.3 K/uL (0.0-0.8); WHITE BLOOD COUNT 11.2 K/uL (4.8-10.8)
[2016-06-11 08:48] LABS: CHLORIDE 101 mmol/L (98-107)
[2016-06-11 08:49] LABS: SODIUM 138 mmol/L (132-148)
[2016-06-11 08:51] LABS: AST/SGOT 13 U/L (17-59); BILIRUBIN,TOTAL 0.9 mg/dL (0.2-1.3); BLOOD UREA NITROGEN 11 mg/dL (9-20); CARBON DIOXIDE 24 mmol/L (22-30); GFR AFRICAN-AMERICAN > 60; TOTAL PROTEIN 5.9 g/dL (6.3-8.3)
[2016-06-11 08:52] LABS: ALKALINE PHOSPHATASE 66 U/L (38-126); ALT/SGPT 13 U/L (21-72); CALCIUM 7.2 mg/dl (8.6-10.4); GLUCOSE,RANDOM 224 mg/dL (75-110); MAGNESIUM 2.1 mg/dL (1.6-2.3); PHOSPHOROUS 1.9 mg/dL (2.5-4.5)
[2016-06-11 08:59] LABS: ALB/GLOB RATIO 1.1 (1.0-2.1)
[2016-06-11] MEDS ORDERED: (Novolog) Insulin Aspart, Recombinant 100 u/ml 10 ml vial SC SCH (10:00)
[2016-06-11] MEDS ORDERED: NIFEdipine 30 mg ER Tab PO SCH (10:00)
[2016-06-11] MEDS ORDERED: Sodium Phosphate 15 MMOLE in Sodium Chloride 0.9% 250 ML IVPB ONE (10:18)
[2016-06-11] MEDS: Pantoprazole 40 mg EC Tab PO SCH (10:29)
[2016-06-11] MEDS: Tiotropium 18 mcg Cap For Inhalation INH SCH (10:55)
[2016-06-11] MEDS: cefTRIAXone 2 GM in Sodium Chloride 0.9% 100 ML IVPB SCH (11:01)
[2016-06-11 12:31] LABS: H INFLUENZAE B NOT REQUIRED (NEGATIVE); N MENINGITIS ACY/W135 NOT REQUIRED (NEGATIVE); N MENINGITIS B/ECOLI K1 NOT REQUIRED (NEGATIVE)
--- NOTE | 2016-06-11 12:35 | CARD ---
APPROVED REPORT EXAM: Two-dimensional and M-mode echocardiogram with Doppler and color Doppler. Other Information Quality : PoorRhythm : NSR Technically limited study due to body habitus. INDICATION COPD RISK FACTORS Hypertension Hyperlipidemia Diabetes M-Mode DIMENSIONS Left Atrium (MM)2.43 (2.5-4.0cm)Aortic Root2.84 (2.2-3.7cm) Aortic Cusp Exc.1.44 (1.5-2.0cm) Aortic Valve AoV Peak Kopfjwtm541.0cm/Anya Peak GR.6mmHg Mitral Valve MV E Uzsdzasa724.8cm/sMV A Roudmgux85.3cm/sE/A ratio1.2 TDI E/Lateral E'0.0E/Medial E'0.0 Tricuspid Valve TR Peak [id number]/sTR Peak Gr.[id number] LEFT VENTRICLE The left ventricle is normal size. There is normal left ventricular wall thickness. Left ventricle systolic function is normal. The Ejection Fraction is 60-65%. There is normal LV segmental wall motion. The left ventricular diastolic function is normal. There is no ventricular septal defect visualized. RIGHT VENTRICLE The right ventricle is normal size. The right ventricular systolic function is normal. ATRIA The left atrium size is normal. The right atrium size is normal. AORTIC VALVE The aortic valve is mildly sclerotic. The aortic valve is probably trileaflet. No aortic regurgitation is present. There is no aortic valvular stenosis. MITRAL VALVE The mitral valve is normal in structure. There is no evidence of mitral valve prolapse. There is no mitral valve regurgitation noted. TRICUSPID VALVE The tricuspid valve is normal in structure. There is trace tricuspid regurgitation. Right ventricular systolic pressure is estimated at less than 30 mmHg. There is no pulmonary hypertension. PULMONIC VALVE The pulmonic valve is not well visualized. There is no pulmonic valvular regurgitation. GREAT VESSELS The IVC is normal in size and collapses >50% with inspiration. PERICARDIAL EFFUSION There is no pericardial effusion. <Conclusion> Suboptimal, poor window Left ventricle systolic function is normal. The Ejection Fraction is 60-65%. The left ventricular diastolic function is normal.
[2016-06-11] MEDS: Moxifloxacin IV 400mg/250ml NS 400 MG/250 ML BAG IVPB SCH (17:45)
--- NOTE | 2016-06-11 18:10 | CP.PCM.CON ---
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 who has had CVA in the past PMD: [place] Allergies: NKDA PMHx: COPD, hypercholesterolemia, HTN and DM PSHx: inguinal hernia repairSocial History: denies ETOH, denies illicit drug use , smokes 10-12 cigarettes per day for 50 years Family Hx: [place] in unknown family member, epilepsy in father, stroke in mother, pancreatic cancer in sister, lung CA in brother Review of Systems - Constitutional Constitutional: As Per HPI, Anorexia, Chills, Malaise - EENT Eyes: absent: As Per HPI, Blind Spots, Blurred Vision, Change in Vision, Decreased Night Vision, Diplopia, Discharge, Dry Eye, Exophthalmos, Floaters, Irritation, Itchy Eyes, Loss of Peripheral Vision, Pain, Photophobia, Requires Corrective Lenses, Sees Flashes, Spots in Vision, Tunnel Vision, Other Visual Disturbances, Loss of Vision, Other Ears: absent: As Per HPI, Decreased Hearing, Ear Discharge, Ear Pain, Tinnitus, Abnormal Hearing, Disequilibrium, Dizziness, Other Nose/Mouth/Throat: absent: As Per HPI, Epistaxis, Nasal Congestion, Nasal Discharge, Nasal Obstruction, Nasal Trauma, Nose Pain, Post Nasal Drip, Sinus Pain, Sinus Pressure, Bleeding Gums, Change in Voice, Dental Pain, Dry Mouth, Dysphagia, Halitosis, Hoarsness, Lip Swelling, Mouth Lesions, Mouth Pain, Odynophagia, Sore Throat, Throat Swelling, Tongue Swelling, Facial Pain, Neck Pain, Neck Mass, Other - Cardiovascular Cardiovascular: As Per HPI - Respiratory Respiratory: As Per HPI, Cough. absent: Hemoptysis - Gastrointestinal Gastrointestinal: absent: As Per HPI, Abdominal Pain, Belching, Bloating, Change in Bowel Habits, Change in Stool Character, Coffee Ground Emesis, Constipation, Cramping, Diarrhea, Dyspepsia, Dysphagia, Early Satiety, Excessive Flatus, Fecal Incontinence, Heartburn, Hematemesis, Hematochezia, Loose Stools, Melena, Nausea, Odynophagia, Temesmus, Vomiting, Other - Genitourinary Genitourinary: absent: As Per HPI, Change in Urinary Stream, Difficulty Urinating, Dysuria, Flank Pain, Hematuria, Pyuria, Nocturia, Urinary Incontinence, Urinary Frequency, Urinary Hesitance, Urinary Urgency, Voiding Freq/Small Amts, Freq UTI, Hx Renal/Bladder Calculi, Hx /Renal Surgery, Bladder Distension, Other - Musculoskeletal Musculoskeletal: absent: As Per HPI, Abnormal Gait, Arthralgias, Atrophy, Back Pain, Deformity, Joint Swelling, Limited Range of Motion, Loss of Height, Muscle Cramps, Muscle Weakness, Myalgias, Neck Pain, Numbness, Radiating Pain into Limb, Stiffness, Tingling, Other - Integumentary Integumentary: absent: As Per HPI, Acne, Alopecia, Bleeding Lesions, Change in Hair, Change in Nails, Change in Pigmentation, Changing Lesions, Dry Skin, Erythema, Furuncle, Hirsutism, Lesions, New Lesions, Non-Healing Lesions, Photosensitivity, Pruritus, Rash, Skin Pain, Skin Ulcer, Sores, Striae, Swelling , Unusual Bruising, Wounds, Jaundice, Other - Neurological Neurological: absent: As Per HPI, Abnormal Gait, Abnormal Hearing, Abnormal Movements, Abnormal Speech, Behavioral Changes, Burning Sensations, Confusion, Convulsions, Disequilibrium, Dizziness, Numbness, Focal Weakness, Frequent Falls , Headaches, Lack of Coordination, Loss of Vision, Memory Loss, Paresthesias, Radicular Pain, Restless Legs, Sensory Deficit, Syncope, Tingling, Tremor, Vertigo, Weakness, Other Visual Disturbances, Other - Psychiatric Psychiatric: absent: As Per HPI, Abnormal Sleep Pattern, Anhedonia, Anxiety, Auditory Hallucinations, Behavioral Changes, Change in Appetite, Change in Libido, Confusion, Depression, Difficulty Concentrating, Hallucinations, Homicidal Ideation, Hopelessness, Irritability, Memory Loss, Mood Swings, Panic Attacks, Paranoia, Suicidal Ideation, Visual Hallucinations, Tactile Hallucinations, Other - Endocrine Endocrine: absent: As Per HPI, Change in Body Appearance, Change in Libido, Cold Intolorance, Deepening of Voice, Excessive Sweating, Fatigue, Flushing, Heat Intolorance, Increase in Ring/Shoe/Hat Size, Palpitations, Polydipsia, Polyphagia, Polyuria, Other - Hematologic/Lymphatic Hematologic: absent: As Per HPI, Easy Bleeding, Easy Bruising, Lymphadenopathy, Other Past Patient History - Past Medical History & Family History Past Medical History?: Yes - Past Social History Smoking Status: Heavy Smoker > 10 Cigarettes Daily - CARDIAC Hx Hypercholesterolemia: Yes Hx Hypertension: Yes - PULMONARY Hx Chronic Obstructive Pulmonary Disease (COPD): Yes Hx Emphysema: Yes - NEUROLOGICAL Hx Neurological Disorder: No - HEENT Hx HEENT Problems: No - RENAL Hx Chronic Kidney Disease: No - ENDOCRINE/METABOLIC Hx Endocrine Disorders: Yes Hx Diabetes Mellitus Type 1: Yes - HEMATOLOGICAL/ONCOLOGICAL Hx Blood Disorders: No - INTEGUMENTARY Hx Dermatological Problems: No - MUSCULOSKELETAL/RHEUMATOLOGICAL Hx Musculoskeletal Disorders: No Hx Falls: No - GASTROINTESTINAL Hx Gastrointestinal Disorders: No - GENITOURINARY/GYNECOLOGICAL Hx Genitourinary Disorders: No - PSYCHIATRIC Hx Psychophysiologic Disorder: No Hx Substance Use: No - SURGICAL HISTORY Hx Surgeries: Yes Hx Herniorrhaphy: Yes (INGUINAL) - ANESTHESIA Hx Anesthesia: Yes Hx Anesthesia Reactions: No Hx Malignant Hyperthermia: No Has any member of the family had a problem w/ anesthesia?: No Meds Allergies/Adverse Reactions: Allergies Allergy/AdvReac Type Severity Reaction Status Date / Time No Known Allergies Allergy Verified 06/10/16 13:13 - Medications Medications: Current Medications Acetaminophen (Tylenol 325mg Tab) 650 mg PO Q6H PRN PRN Reason: Fever >100.4 F Last Admin: 06/11/16 17:04 Dose: 650 mg Albuterol/Ipratropium (Duoneb 3 Mg/0.5 Mg (3 Ml) Ud) 3 ml INH RQ4 [facility] Last Admin: 06/11/16 16:34 Dose: 3 ml Furosemide (Lasix) 20 mg PO DAILY [facility] Last Admin: 06/11/16 10:32 Dose: 20 mg Heparin Sodium (Porcine) (Heparin) 5,000 units SC Q8 [facility] Last Admin: 06/11/16 06:06 Dose: 5,000 units Moxifloxacin HCl (Avelox Iv 400mg/250ml Ns) 400 mg in 250 mls @ 167 mls/hr IVPB Q24H [facility] Last Admin: 06/11/16 17:45 Dose: 167 mls/hr Ceftriaxone Sodium 2 gm/ (Sodium Chloride) 100 mls @ 100 mls/hr IVPB DAILY [facility] Last Admin: 06/11/16 11:01 Dose: 100 mls/hr Sodium Chloride (Sodium Chloride 0.9%) 1,000 mls @ 100 mls/hr IV .Q10H [facility] Last Admin: 06/11/16 05:18 Dose: 100 mls/hr Insulin Glargine (Lantus) [address] [facility] Last Admin: 06/10/16 22:29 Dose: 30 units Insulin Human Regular (Novolin R) 0 unit SC [facility] PRN Reason: Protocol Last Admin: 06/11/16 18:02 Dose: 3 unit Lisinopril (Zestril) 20 mg PO DAILY [facility] Last Admin: 06/11/16 10:28 Dose: 20 mg Montelukast Sodium (Singulair) [address] [facility] Last Admin: 06/10/16 22:28 Dose: 10 mg Nebivolol (Bystolic) 2.5 mg PO DAILY [facility] Last Admin: 06/11/16 10:28 Dose: 2.5 mg Nicotine (Nicoderm Cq) 1 patch TD DAILY [facility] Last Admin: 06/11/16 10:28 Dose: 1 patch Pantoprazole Sodium (Protonix Ec Tab) 40 mg PO DAILY [facility] Last Admin: 06/11/16 10:29 Dose: 40 mg Rosuvastatin Calcium (Crestor) [address] [facility] Last Admin: 06/10/16 22:28 Dose: 20 mg Tiotropium [place] (Spiriva) 18 mcg INH RQ24 [facility] Last Admin: 06/11/16 10:55 Dose: Not Given Physical Exam - Constitutional Appears: Non-toxic, No Acute Distress - Head Exam Head Exam: ATRAUMATIC, NORMAL INSPECTION, NORMOCEPHALIC - Eye Exam Eye Exam: PERRL. absent: Scleral icterus - ENT Exam ENT Exam: Mucous Membranes Dry, Normal External Ear Exam - Neck Exam Neck exam: Negative for: Lymphadenopathy, Thyromegaly - Respiratory Exam Respiratory Exam: Decreased Breath Sounds, Rales, Rhonchi - Cardiovascular Exam Cardiovascular Exam: REGULAR RHYTHM, +S1, +S2 - GI/Abdominal Exam GI & Abdominal Exam: Diminished Bowel Sounds, Distended, Soft. absent: Guarding , Rebound, Rigid, Tenderness - Rectal Exam Rectal Exam: Deferred - Exam Exam: NORMAL INSPECTION - Extremities Exam Extremities exam: Positive for: pedal pulses present. Negative for: calf tenderness, pedal edema, tenderness - Back Exam Back exam: absent: CVA tenderness (L), CVA tenderness (R) - Neurological Exam Neurological exam: Alert, CN II-XII Intact, Oriented x3, Reflexes Normal - Psychiatric Exam Psychiatric exam: Normal Mood - Skin Skin Exam: Dry, Intact Results - Vital Signs Recent Vital Signs: Last Vital Signs Temp 101.6 F H 06/11/16 16:00 Pulse 91 H 06/11/16 16:00 Resp 20 06/11/16 16:00 BP 162/83 H 06/11/16 16:00 Pulse Ox 95 06/11/16 16:00 - Labs Result Diagrams: 06/11/16 08:29 06/11/16 08:29 Labs: Laboratory Results - last 24 hr 06/10/16 06/10/16 06/10/16 16:55 18:26 19:15 WBC RBC Hgb Hct MCV MCH MCHC RDW Plt Count MPV Neut % (Auto) Lymph % (Auto) [place] % (Auto) Eos % (Auto) Baso % (Auto) Neut # Lymph # [place] # Eos # Baso # Puncture Site Rra pCO2 50 H pO2 64 L HCO3 24.7 ABG pH 7.33 L ABG Total CO2 27.9 ABG O2 Saturation 94.2 L ABG Base Excess -0.1 ABG Hemoglobin 11.5 L ABG Carboxyhemoglobin 2.4 H POC ABG HHb (Measured) 5.5 H ABG Methemoglobin 2.0 [place] Test Pos Hgb O2 Saturation 90.1 L Liter Flow 3.0 Sodium Potassium Chloride Carbon Dioxide Anion Gap BUN Creatinine Est GFR ( Amer) Est GFR (Non-Af Amer) POC Glucose (mg/dL) 217 H Random Glucose Hemoglobin A1c Lactic Acid Calcium Phosphorus Magnesium Total Bilirubin AST ALT Alkaline Phosphatase NT-Pro-B Natriuret Pep Total Protein Albumin Globulin Albumin/Globulin Ratio Procalcitonin 0.16 L HIV 1&2 Antibody Screen Influenza Typ A,B (EIA) Negative for flu a/b Ur L.pneumophila Ag Negative 06/10/16 06/10/16 06/10/16 21:12 22:02 22:02 WBC RBC Hgb Hct MCV MCH MCHC RDW Plt Count MPV Neut % (Auto) Lymph % (Auto) [place] % (Auto) Eos % (Auto) Baso % (Auto) Neut # Lymph # [place] # Eos # Baso # Puncture Site pCO2 pO2 HCO3 ABG pH ABG Total CO2 ABG O2 Saturation ABG Base Excess ABG Hemoglobin ABG Carboxyhemoglobin POC ABG HHb (Measured) ABG Methemoglobin [place] Test Hgb O2 Saturation Liter Flow Sodium Potassium Chloride Carbon Dioxide Anion Gap BUN Creatinine Est GFR ( Amer) Est GFR (Non-Af Amer) POC Glucose (mg/dL) 250 H Random Glucose Hemoglobin A1c Lactic Acid 0.9 Calcium Phosphorus Magnesium Total Bilirubin AST ALT Alkaline Phosphatase NT-Pro-B Natriuret Pep Total Protein Albumin Globulin Albumin/Globulin Ratio Procalcitonin HIV 1&2 Antibody Screen Negative Influenza Typ A,B (EIA) Ur L.pneumophila Ag 06/11/16 06/11/16 06/11/16 06:40 08:29 08:29 WBC 11.2 H RBC 3.80 L Hgb 11.5 L Hct 35.2 MCV 92.6 MCH 30.4 MCHC 32.8 L RDW 14.0 Plt Count 251 MPV 7.9 Neut % (Auto) 75.0 Lymph % (Auto) 11.8 L [place] % (Auto) 12.0 H Eos % (Auto) 0.7 Baso % (Auto) 0.5 Neut # 8.4 H Lymph # 1.3 [place] # 1.3 H Eos # 0.1 Baso # 0.1 Puncture Site pCO2 pO2 HCO3 ABG pH ABG Total CO2 ABG O2 Saturation ABG Base Excess ABG Hemoglobin ABG Carboxyhemoglobin POC ABG HHb (Measured) ABG Methemoglobin [place] Test Hgb O2 Saturation Liter Flow Sodium Potassium Chloride Carbon Dioxide Anion Gap BUN Creatinine Est GFR ( Amer) Est GFR (Non-Af Amer) POC Glucose (mg/dL) 233 H Random Glucose Hemoglobin A1c Lactic Acid Calcium Phosphorus Magnesium Total Bilirubin AST ALT Alkaline Phosphatase NT-Pro-B Natriuret Pep 186 Total Protein Albumin Globulin Albumin/Globulin Ratio Procalcitonin HIV 1&2 Antibody Screen Influenza Typ A,B (EIA) Ur L.pneumophila Ag 06/11/16 06/11/16 06/11/16 08:29 08:29 12:45 WBC RBC Hgb Hct MCV MCH MCHC RDW Plt Count MPV Neut % (Auto) Lymph % (Auto) [place] % (Auto) Eos % (Auto) Baso % (Auto) Neut # Lymph # [place] # Eos # Baso # Puncture Site pCO2 pO2 HCO3 ABG pH ABG Total CO2 ABG O2 Saturation ABG Base Excess ABG Hemoglobin ABG Carboxyhemoglobin POC ABG HHb (Measured) ABG Methemoglobin [place] Test Hgb O2 Saturation Liter Flow Sodium 138 Potassium 4.0 Chloride 101 Carbon Dioxide 24 Anion Gap 18 BUN 11 Creatinine 0.7 L Est GFR ( Amer) > 60 Est GFR (Non-Af Amer) > 60 POC Glucose (mg/dL) 315 H Random Glucose 224 H Hemoglobin A1c 7.9 H Lactic Acid Calcium 7.2 L Phosphorus 1.9 L Magnesium 2.1 Total Bilirubin 0.9 AST 13 L D ALT 13 L Alkaline Phosphatase 66 NT-Pro-B Natriuret Pep Total Protein 5.9 L Albumin 3.1 L Globulin 2.7 Albumin/Globulin Ratio 1.1 Procalcitonin HIV 1&2 Antibody Screen Influenza Typ A,B (EIA) Ur L.pneumophila Ag 06/11/16 16:59 WBC RBC Hgb Hct MCV MCH MCHC RDW Plt Count MPV Neut % (Auto) Lymph % (Auto) [place] % (Auto) Eos % (Auto) Baso % (Auto) Neut # Lymph # [place] # Eos # Baso # Puncture Site pCO2 pO2 HCO3 ABG pH ABG Total CO2 ABG O2 Saturation ABG Base Excess ABG Hemoglobin ABG Carboxyhemoglobin POC ABG HHb (Measured) ABG Methemoglobin [place] Test Hgb O2 Saturation Liter Flow Sodium Potassium Chloride Carbon Dioxide Anion Gap BUN Creatinine Est GFR ( Amer) Est GFR (Non-Af Amer) POC Glucose (mg/dL) 227 H Random Glucose Hemoglobin A1c Lactic Acid Calcium Phosphorus Magnesium Total Bilirubin AST ALT Alkaline Phosphatase NT-Pro-B Natriuret Pep Total Protein Albumin Globulin Albumin/Globulin Ratio Procalcitonin HIV 1&2 Antibody Screen Influenza Typ A,B (EIA) Ur L.pneumophila Ag Assessment & Plan (1) COPD exacerbation Status: Acute (2) Fever Status: Acute (3) Weakness Status: Acute (4) Pulmonary embolism Status: Suspected - Assessment and Plan (Free Text) Assessment: cont iv rx as per dr Beverly await cultures and serologies
[2016-06-11] MEDS ORDERED: (Lantus) Insulin Glargine, Recombinant SC SCH ×2 (18:35→18:39)
--- NOTE | 2016-06-11 20:02 | CP.PCM.PN ---
Subjective - Date & Time of Evaluation Date of Evaluation: 06/11/16 Time of Evaluation: 19:59 - Subjective Subjective: pt. feels better today but still with cough and congestion, and diff expectorating sputum Objective - Vital Signs/Intake and Output Vital Signs (last 24 hours): Temp Pulse Resp BP Pulse Ox 101.6 F H 91 H 20 162/83 H 95 06/11/16 16:00 06/11/16 16:00 06/11/16 16:00 06/11/16 16:00 06/11/16 16:00 - Medications Medications: Current Medications Acetaminophen (Tylenol 325mg Tab) 650 mg PO Q6H PRN PRN Reason: Fever >100.4 F Last Admin: 06/11/16 17:04 Dose: 650 mg Albuterol/Ipratropium (Duoneb 3 Mg/0.5 Mg (3 Ml) Ud) 3 ml INH RQ4 [facility] Last Admin: 06/11/16 19:44 Dose: 3 ml Furosemide (Lasix) 20 mg PO DAILY [facility] Last Admin: 06/11/16 10:32 Dose: 20 mg Heparin Sodium (Porcine) (Heparin) 5,000 units SC Q8 [facility] Last Admin: 06/11/16 06:06 Dose: 5,000 units Moxifloxacin HCl (Avelox Iv 400mg/250ml Ns) 400 mg in 250 mls @ 167 mls/hr IVPB Q24H [facility] Last Admin: 06/11/16 17:45 Dose: 167 mls/hr Ceftriaxone Sodium 2 gm/ (Sodium Chloride) 100 mls @ 100 mls/hr IVPB DAILY [facility] Last Admin: 06/11/16 11:01 Dose: 100 mls/hr Sodium Chloride (Sodium Chloride 0.9%) 1,000 mls @ 100 mls/hr IV .Q10H [facility] Last Admin: 06/11/16 05:18 Dose: 100 mls/hr Insulin Glargine (Lantus) 35 unit SC HS [facility] Insulin Human Regular (Novolin R) 0 unit SC [facility] PRN Reason: Protocol Last Admin: 06/11/16 18:02 Dose: 3 unit Lisinopril (Zestril) 20 mg PO DAILY [facility] Last Admin: 06/11/16 10:28 Dose: 20 mg Montelukast Sodium (Singulair) 10 mg PO HS [facility] Last Admin: 06/10/16 22:28 Dose: 10 mg Nebivolol (Bystolic) 2.5 mg PO DAILY [facility] Last Admin: 06/11/16 10:28 Dose: 2.5 mg Nicotine (Nicoderm Cq) 1 patch TD DAILY [facility] Last Admin: 06/11/16 10:28 Dose: 1 patch Pantoprazole Sodium (Protonix Ec Tab) 40 mg PO DAILY [facility] Last Admin: 06/11/16 10:29 Dose: 40 mg Rosuvastatin Calcium (Crestor) 20 mg PO HS [facility] Last Admin: 06/10/16 22:28 Dose: 20 mg Tiotropium [place] (Spiriva) 18 mcg INH RQ24 [facility] Last Admin: 06/11/16 10:55 Dose: Not Given - Labs Labs: 06/11/16 08:29 06/11/16 08:29 PT 12.9 SECONDS (9.7-12.2) H 06/10/16 13:21 INR 1.2 06/10/16 13:21 APTT 30 SECONDS (21-34) 06/10/16 13:21 - Constitutional Appears: No Acute Distress - Head Exam Head Exam: ATRAUMATIC, NORMOCEPHALIC - Eye Exam Eye Exam: Normal appearance - ENT Exam ENT Exam: Mucous Membranes Moist - Respiratory Exam Respiratory Exam: Decreased Breath Sounds, Rhonchi - Cardiovascular Exam Cardiovascular Exam: +S1, +S2 - GI/Abdominal Exam GI & Abdominal Exam: Normal Bowel Sounds - Rectal Exam Rectal Exam: Deferred - Neurological Exam Neurological Exam: Alert, Awake, Oriented x3 - Psychiatric Exam Psychiatric exam: Normal Affect, Normal Mood - Skin Skin Exam: Intact Assessment and Plan (1) Fever Status: Resolved (2) COPD exacerbation Status: Acute (3) Pulmonary embolism Status: Ruled-out
[2016-06-11] MEDS: guaiFENesin 600 mg ER Tab PO SCH (22:33)
[2016-06-11] MEDS: (Lantus) Insulin Glargine, Recombinant SC SCH (22:48)
[2016-06-12] MEDS: Albuterol-Ipratrop 3 mg / 0.5 (3 ml) UD INH SCH ×6 (04:47→19:52)
[2016-06-12 07:20] LABS: BASO # 0.1 K/uL (0.0-0.2); BASO % 0.6 % (0.0-2.0); EOS # 0.2 K/uL (0.0-0.7); EOS % 1.4 % (0.0-4.0); HEMATOCRIT 33.7 % (35.0-51.0); LYMPH # 2.1 K/uL (1.0-4.3); LYMPH % 18.5 % (20.0-40.0); MEAN CELL VOLUME 92.7 fL (80.0-94.0); MEAN CORPUSCULAR HEMOGLOBIN 30.4 pg (27.0-31.0); MEAN CORPUSCULAR HGB CONC 32.8 g/dL (33.0-37.0); MEAN PLATELET VOLUME 7.9 fL (7.2-11.7); MONO # 1.5 K/uL (0.0-0.8); MONO % 13.5 % (0.0-10.0); NRBC % 0.2 % (0.0-2.0); RED CELL DISTRIBUTION WIDTH 14.5 % (11.5-14.5); WHITE BLOOD COUNT 11.1 K/uL (4.8-10.8)
[2016-06-12 07:23] LABS: CHLORIDE 100 mmol/L (98-107); SODIUM 137 mmol/L (132-148)
[2016-06-12 07:24] LABS: POTASSIUM 3.7 mmol/L (3.6-5.2)
[2016-06-12 07:25] LABS: CHOLESTEROL 131 mg/dL (0-199)
[2016-06-12 07:26] LABS: ALB/GLOB RATIO 1.1 (1.0-2.1); ALKALINE PHOSPHATASE 59 U/L (38-126); ALT/SGPT 26 U/L (21-72); AST/SGOT 16 U/L (17-59); BILIRUBIN,TOTAL 0.6 mg/dL (0.2-1.3); BLOOD UREA NITROGEN 9 mg/dL (9-20); CARBON DIOXIDE 29 mmol/L (22-30); GFR AFRICAN-AMERICAN > 60; GLUCOSE,RANDOM 149 mg/dL (75-110); TOTAL PROTEIN 5.9 g/dL (6.3-8.3)
[2016-06-12 07:27] LABS: CALCIUM 7.4 mg/dl (8.6-10.4); MAGNESIUM 2.1 mg/dL (1.6-2.3)
[2016-06-12] MEDS: (Novolin R) Insulin Human Regular 100 units/ml vial SC SCH ×4 (08:24→22:00)
--- NOTE | 2016-06-12 08:57 | CP.PCM.PN ---
Subjective - Date & Time of Evaluation Date of Evaluation: 06/12/16 Time of Evaluation: 08:30 - Subjective Subjective: Patient was seen and examined by me. Reviewed previous notes Per discussion with RN, he had to be on venti mask tempprarily due to low SpO2 however later went back to nasal cannula, when I saw the patient he reported that overal he is feeling better - he says about 80% better. He has not tried walking yet. He denied chest pain, denied shortness of breath at rest, denied abdominal pain , denied palpitations, denied headache, denied fever, denied difficulty urinating or difficulty with BMs Yesterday and the day before he had very high fevers, currently non febrile at this time. WBC is decreasing, he previoulsy had bandemia as well. Currently on abx Azithromycin and Rocephin IV. As mentioned before the patient is being treated for sepsis from multilobar pneumonia. We are pending repeat cultures at this time. A CTA was negative for PE. The CT of chest shows a lot of lung findings, history of smoking. Objective - Vital Signs/Intake and Output Vital Signs (last 24 hours): Temp Pulse Resp BP Pulse Ox 99 F 98 H 20 147/63 96 06/12/16 07:00 06/12/16 07:00 06/12/16 07:00 06/12/16 07:00 06/12/16 07:00 Intake and Output: 06/12/16 06/12/16 06:59 18:59 Intake Total 2100 Balance 2100 - Medications Medications: Current Medications Acetaminophen (Tylenol 325mg Tab) 650 mg PO Q6H PRN PRN Reason: Fever >100.4 F Last Admin: 06/11/16 17:04 Dose: 650 mg Albuterol/Ipratropium (Duoneb 3 Mg/0.5 Mg (3 Ml) Ud) 3 ml INH RQ4 [facility] Last Admin: 06/12/16 04:47 Dose: Not Given Furosemide (Lasix) 20 mg PO DAILY [facility] Last Admin: 06/11/16 10:32 Dose: 20 mg Guaifenesin (Mucinex La) 600 mg PO BID [facility] Last Admin: 06/11/16 22:33 Dose: Not Given Heparin Sodium (Porcine) (Heparin) 5,000 units SC Q8 [facility] Last Admin: 06/12/16 06:36 Dose: 5,000 units Moxifloxacin HCl (Avelox Iv 400mg/250ml Ns) 400 mg in 250 mls @ 167 mls/hr IVPB Q24H [facility] Last Admin: 06/11/16 17:45 Dose: 167 mls/hr Ceftriaxone Sodium 2 gm/ (Sodium Chloride) 100 mls @ 100 mls/hr IVPB DAILY [facility] Last Admin: 06/11/16 11:01 Dose: 100 mls/hr Sodium Chloride (Sodium Chloride 0.9%) 1,000 mls @ 100 mls/hr IV .Q10H [facility] Last Admin: 06/11/16 22:50 Dose: 100 mls/hr Insulin Glargine (Lantus) 35 unit SC [facility] Last Admin: 06/11/16 22:48 Dose: 35 u Insulin Human Regular (Novolin R) 0 unit SC [facility] PRN Reason: Protocol Last Admin: 06/12/16 08:24 Dose: 2 unit Lisinopril (Zestril) 20 mg PO DAILY [facility] Last Admin: 06/11/16 10:28 Dose: 20 mg Montelukast Sodium (Singulair) 10 mg PO HS [facility] Last Admin: 06/11/16 22:31 Dose: 10 mg Nebivolol (Bystolic) 2.5 mg PO DAILY [facility] Last Admin: 06/11/16 10:28 Dose: 2.5 mg Nicotine (Nicoderm Cq) 1 patch TD DAILY [facility] Last Admin: 06/11/16 10:28 Dose: 1 patch Pantoprazole Sodium (Protonix Ec Tab) 40 mg PO DAILY [facility] Last Admin: 06/11/16 10:29 Dose: 40 mg Rosuvastatin Calcium (Crestor) 20 mg PO [facility] Last Admin: 06/11/16 22:30 Dose: 20 mg Fluticasone/Salmeterol (Advair Diskus 250/50) 1 puff INH RQ12 [facility] Tiotropium [place] (Spiriva) 18 mcg INH RQ24 [facility] Last Admin: 06/11/16 10:55 Dose: Not Given - Labs Labs: 06/12/16 07:01 06/12/16 07:04 PT 12.9 SECONDS (9.7-12.2) H 06/10/16 13:21 INR 1.2 06/10/16 13:21 APTT 30 SECONDS (21-34) 06/10/16 13:21 - Constitutional Appears: No Acute Distress, Chronically Ill - Head Exam Head Exam: NORMAL INSPECTION - Eye Exam Eye Exam: EOMI, Normal appearance - ENT Exam ENT Exam: Mucous Membranes Moist - Respiratory Exam Respiratory Exam: Decreased Breath Sounds, Rales, Rhonchi - Cardiovascular Exam Cardiovascular Exam: REGULAR RHYTHM - GI/Abdominal Exam GI & Abdominal Exam: Soft, Normal Bowel Sounds - Neurological Exam Neurological Exam: Alert, Awake, Oriented x3 Neuro motor strength exam: Left Upper Extremity: 5, Right Upper Extremity: 5 - Psychiatric Exam Psychiatric exam: Depressed, Flat Affect - Skin Skin Exam: Normal Color, Warm Assessment and Plan - Assessment and Plan (Free Text) Assessment: Sepsis 06/12: WBC is decreased, bandemia improving as well. Yesterday and day before had impressively high fevers. Today does not. Pending blood cultures, they're negative for 24 hrs. Continue on abx at this time. Blood pressure is stable, will decrease IVF today as he is eating and drinking ok. * On admission: Fevers above 100.3, tachycardic in 100s in, WBC 14.4 with bandemia of 11 and left shift; Criteria: multilobar pneumonia * Lactic acid 0.9 --> 0.7--> 0.9 * Procalcitonin: 0.19 (low) * CXR 06/10/16- bilateral hilar prominence * NS @100cc/hr * F/U blood culture X2, sputum culture * In the ED, received Maxipime and Avelox * Abx: Avelox 400mg IV daily and Rocephin 2gram IV daily (Started 06/10/16) * Florastor 250mg PO bid for gut protection * CT Angio (06/10/16): multifocal infectious bronchiolitis/pneumonia in the lungs bilaterally, no evidence of PE, mild bilateral hilar lymphadenopathy. emphysematous changes, incidental left adrenal lesion. Refer to full report * influenza, Strep, legionella, Mycoplasma IgM all negative Pneumonia 06/12: As mentioned above, WBC decreased and bandemia improved. Start PT/OT, out of bed to chair, decrease IVF and repeat CXRAY today. * CXR 06/10/16- bilateral hilar prominence * CT Angio (06/10/16): suspicious multifocal infectious pneumonia in the lungs b/ l; mild bilateral hilar lymphadenopathy, emphysematous changes. Refer to full report * Avelox 400mg IVPB daily and Rocephin 2gm IV daily (Started 06/10/16) * Florastor 250mg PO bid * Pulmonary (Dr. Galaviz) on board. * Infectious Disease (Dr. Hull) on board. Cont IV abx and await cultures/ serologies * Negative flu, negative Strep, negative legionella, negative Mycoplasma IgM Dyspnea 06/12: Negative for PE, pending cultures at this time - patient reports "I feel 80% better" * Etiology includes but not limited to: Pneumonia , COPD exacerbation, PE or Lung CA * CT Angio (06/10/16): see aforementioned above * Procalcitonin: 0.16 (low) * O2 3L via [place] Hx of Obstructive Sleep Apnea * CPAP to be titrated by respiratory therapy COPD * Duonebs 3ml INH RQ4 [facility] * Advair 250/50mg INH BID * Singulair 10mg PO HS * Spiriva 18mcg INH daily * (patient takes albuterol and flovent inhaler at home) * F/U Pulm recommendations * Tobacco counselling to be provided. Patient on nicotine patch but does not appear to be interested in quitting per conversation earlier. Tobacco abuse * Nicotine 21/day TD daily * As stated above HTN 06/12: Mostly in the 140s to 160s systolic, will decrease the IVF today. * Continue home meds: lasix 20mg PO daily, Bystolic 2.5mg Po daily, lisinopril 20mg PO daily. Betablocker changed to be more selective given COPD diagnosis * Monitor DM * Uncontrolled * Hgba1c: 7.9 * Lantus increased to 35U SC QHS * RISS * Accuchecks QAC and HS * Holding home metformin 1000mg PO BID H/O hyperlipidemia * Crestor 20mg @ HS * F/U Lipid panel * Diet and exercise modifications Prophylaxis * Protonix 40mg PO daily * DVT: Hep SC Q8 * SCDS * PT/OT eval- F/U * Oxygen administration therapy, Resp Physical therapy suggested as well
[2016-06-12] MEDS ORDERED: Sodium Chloride 0.9% 1,000 ML IV SCH (09:04)
[2016-06-12] MEDS: Fluticasone-Salmeterol 250-50mcg Diskus INH SCH ×2 (09:06→19:52)
[2016-06-12] MEDS: guaiFENesin 600 mg ER Tab PO SCH ×2 (09:45→17:38)
[2016-06-12] MEDS: Pantoprazole 40 mg EC Tab PO SCH (09:45)
[2016-06-12] MEDS: cefTRIAXone 2 GM in Sodium Chloride 0.9% 100 ML IVPB SCH (09:45)
[2016-06-12] MEDS: Tiotropium 18 mcg Cap For Inhalation INH SCH (09:51)
--- NOTE | 2016-06-12 10:54 | RAD ---
HISTORY: shortness of breath follow up COMPARISON: Chest x-ray performed 06/10/16 TECHNIQUE: Chest, one view. FINDINGS: LUNGS: Minimal patchy bilateral pulmonary opacities consistent with multifocal infectious bronchiolitis or pneumonia demonstrated on CTA of the chest 06/10/16. Persistent bilateral hilar prominence. Emphysematous changes. Please note that chest x-ray has limited sensitivity for the detection of pulmonary masses. PLEURA: No significant pleural effusion identified. No definite pneumothorax . CARDIOVASCULAR: Heart size appears within normal limits. OSSEOUS STRUCTURES: Degenerative changes. VISUALIZED UPPER ABDOMEN: Unremarkable. OTHER FINDINGS: None. IMPRESSION: Minimal patchy bilateral pulmonary opacities consistent with multifocal infectious bronchiolitis or pneumonia demonstrated on CTA of the chest 06/10/16. Persistent bilateral hilar prominence compatible with bilateral hilar adenopathy. Emphysematous changes.
[2016-06-12] MEDS: Moxifloxacin IV 400mg/250ml NS 400 MG/250 ML BAG IVPB SCH (14:24)
[2016-06-12] MEDS: (Lantus) Insulin Glargine, Recombinant SC SCH (21:40)
[2016-06-13] MEDS: Albuterol-Ipratrop 3 mg / 0.5 (3 ml) UD INH SCH ×6 (00:23→19:45)
[2016-06-13 09:08] LABS: BASO # 0.1 K/uL (0.0-0.2); BASO % 0.7 % (0.0-2.0); EOS # 0.4 K/uL (0.0-0.7); EOS % 3.5 % (0.0-4.0); HEMATOCRIT 35.5 % (35.0-51.0); LYMPH # 2.3 K/uL (1.0-4.3); LYMPH % 20.6 % (20.0-40.0); MEAN CELL VOLUME 92.7 fL (80.0-94.0); MEAN CORPUSCULAR HEMOGLOBIN 30.4 pg (27.0-31.0); MEAN CORPUSCULAR HGB CONC 32.8 g/dL (33.0-37.0); MEAN PLATELET VOLUME 7.8 fL (7.2-11.7); MONO # 1.8 K/uL (0.0-0.8); MONO % 15.9 % (0.0-10.0); NRBC % 0.1 % (0.0-2.0); RED CELL DISTRIBUTION WIDTH 13.9 % (11.5-14.5)
--- NOTE | 2016-06-13 09:19 | CP.PCM.PN ---
<Ernestina Villalta V - Last Filed: 06/13/16 12:48> Objective - Vital Signs/Intake and Output Vital Signs (last 24 hours): Temp Pulse Resp BP Pulse Ox 99.2 F 86 19 127/61 92 L 06/13/16 08:21 06/13/16 11:43 06/13/16 08:21 06/13/16 09:24 06/13/16 11:43 - Medications Medications: Current Medications Acetaminophen (Tylenol 325mg Tab) 650 mg PO Q6H PRN PRN Reason: Fever >100.4 F Last Admin: 06/11/16 17:04 Dose: 650 mg Albuterol/Ipratropium (Duoneb 3 Mg/0.5 Mg (3 Ml) Ud) 3 ml INH RQ4 [facility] Last Admin: 06/13/16 11:21 Dose: 3 ml Furosemide (Lasix) 20 mg PO DAILY [facility] Last Admin: 06/13/16 09:24 Dose: 20 mg Guaifenesin (Mucinex La) 600 mg PO BID [facility] Last Admin: 06/13/16 09:25 Dose: 600 mg Heparin Sodium (Porcine) (Heparin) 5,000 units SC Q8 [facility] Last Admin: 06/13/16 06:00 Dose: Not Given Moxifloxacin HCl (Avelox Iv 400mg/250ml Ns) 400 mg in 250 mls @ 167 mls/hr IVPB Q24H [facility] Last Admin: 06/12/16 14:24 Dose: 167 mls/hr Ceftriaxone Sodium 2 gm/ (Sodium Chloride) 100 mls @ 100 mls/hr IVPB DAILY [facility] Last Admin: 06/13/16 11:00 Dose: 100 mls/hr Insulin Glargine (Lantus) 40 unit SC [facility] Insulin Human Regular (Novolin R) 0 unit SC [facility] PRN Reason: Protocol Last Admin: 06/13/16 11:56 Dose: 3 unit Lisinopril (Zestril) 20 mg PO DAILY [facility] Last Admin: 06/13/16 09:24 Dose: 20 mg Montelukast Sodium (Singulair) 10 mg PO HS [facility] Last Admin: 06/12/16 21:40 Dose: 10 mg Nebivolol (Bystolic) 2.5 mg PO DAILY [facility] Last Admin: 06/13/16 09:25 Dose: 2.5 mg Nicotine (Nicoderm Cq) 1 patch TD DAILY [facility] Last Admin: 06/13/16 11:00 Dose: 1 patch Pantoprazole Sodium (Protonix Ec Tab) 40 mg PO DAILY [facility] Last Admin: 06/13/16 09:23 Dose: 40 mg Rosuvastatin Calcium (Crestor) 20 mg PO HS [facility] Last Admin: 06/12/16 21:39 Dose: 20 mg Fluticasone/Salmeterol (Advair Diskus 250/50) 1 puff INH RQ12 [facility] Last Admin: 06/13/16 11:21 Dose: 1 puff Tiotropium [place] (Spiriva) 18 mcg INH RQ24 [facility] Last Admin: 06/13/16 11:21 Dose: 18 mcg - Labs Labs: 06/13/16 08:55 06/13/16 08:55 PT 12.9 SECONDS (9.7-12.2) H 06/10/16 13:21 INR 1.2 06/10/16 13:21 APTT 30 SECONDS (21-34) 06/10/16 13:21 Attending/Attestation - Attestation I have personally seen and examined this patient.: Yes I have fully participated in the care of the patient.: Yes I have reviewed all pertinent clinical information, including history, physical exam and plan: Yes Notes (Text): Patient seen, examined, and case discussed with day-time resident. Patient clinically improving. Patient is awake, alert, appears less lethargic. Patient is conversant with at bedside. Patient reports he was able to go to and from the bathroom. Patient is almost 24 hours without fever. Continue IV abx to cover for multilobar pneumonia. Cultures thus far negative. Re-emphasized to the patient with at bedside to reduce smoking. Per , patient has not felt the need to smoking since being at the hospital PT/OT eval. SARA eval. Will follow-up with ID and Pulm regarding if patient appropriate for IV abx or PO antibiotic for discharge planning Assessment/Plan 1) Sepsis * Criteria: [id number], tachycardic in 100s, WBC 14.4 with bandemia of 11 and left shift; Criteria: multillobar pneumonia * Lactic acid 0.9 --> 0.7--> 0.9 * Procalcitonin: 0.19 (low) * CXR 06/10/16- bilateral hilar prominence * Admit to telemetry * In the ED, received Maxipime and Avelox * Abx: Avelox 400mg IV daily and Rocephin 2gram IV daily (active since 06/10/16) * Florastor 250mg PO bid * CT Angio (06/10/16): multifocal infectious bronchiolitis/pneumonia in the lungs bilaterally, no evidence of PE, mild bilateral hilar lymphadenopathy. emphysematous changes, incidental left adrenal lesion * Chest xray (06/12/16): minimal patchy bilateral pulmonary opacities consistent with multifocal infectious brochiolitis or pneumonia demonstrated of CTA of the chest 06/10/16, persistent bilateral hilar prominence compatible with bilateral hilar adenopathy. Emphysematous changes. * 06/10 Blood Culture: No growth After 48 hours X2 * 06/10/16 Urine culture: no growth * 06/11/16 Sputum: no growth * Negative flu, negative Strep, negative legionella, negative Mycoplasma IgM 2) Pneumonia * Pulmonary (Dr. Lemus) on board * Infectious Disease (Dr. Hull) on board * CXR 06/10/16- bilateral hilar prominence * CT Angio (06/10/16): suspicious multifocal infectious pneumonia in the lungs b/ l; mild bilateral hilar lymphadenopathy, emphysematous changes * Chest xray (06/12/16): minimal patchy bilateral pulmonary opacities consistent with multifocal infectious brochiolitis or pneumonia demonstrated of CTA of the chest 06/10/16, persistent bilateral hilar prominence compatible with bilateral hilar adenopathy. Emphysematous changes. * Avelox 400mg IVPB daily and Rocephin 2gram IVq daily (active since 06/10/16) * Florastor 250mg PO bid * Negative flu, negative Strep, negative legionella, negative Mycoplasma IgM 3) Dyspnea * Differentials to include: Multilobar Pneumonia * CT Angio (06/10/16): suspicious multifocal infectious pneumonia in the lungs b/ l; mild bilateral hilar lymphadenopathy, emphysematous changes * Chest xray (06/12/16): minimal patchy bilateral pulmonary opacities consistent with multifocal infectious brochiolitis or pneumonia demonstrated of CTA of the chest 06/10/16, persistent bilateral hilar prominence compatible with bilateral hilar adenopathy. Emphysematous changes. * Procalcitonin: 0.16 (low) * O2 3L via [place] * Pulmonology consult - Dr. Galaviz * Phenergan w codeine 5ml PO Q 4hour PRN cough * Mucinex 600mg PO bid 4) Hx of Obstructive Sleep Apnea * CPAP to be titrated by respiratory therapy 5) COPD * Pulmonary (Dr. Lemus) on board-->help appreciated * Duonebs 3ml INH RQ4 [facility] * Advair 250/50mg INH BID * Singulair 10mg PO HS * Spiriva 18mcg INH daily * (patient takes albuterol and flovent inhaler at home) * Tobacco counselling to be provided * Phenergan w codeine 5ml PO Q 4hour PRN cough * Mucinex 600mg PO bid 6) Tobacco abuse * Nicotine 21/day TD daily 7) H/O HTN * Continue home meds: lasix 20mg PO daily, Bystolic 2.5mg Po daily, lisinopril 20mg PO daily * Monitor vital signs 8)H/O DM * Uncontrolled * Hgba1c: 7.9 * increase to Lantus 40 U SC QHS * RISS * Accuchecks QAC and HS * Holding home metformin 1000mg PO BID 9) H/O hyperlipidemia * Crestor 20mg subqHS * T, cholestrol: 131, LDL: 71, HDL:30 10) Prophylaxis * Protonix 40mg PO daily * Hep 5000U SC [id number] for DVT ppx * SCDS * PT/OT eval * Oxygen via nasal cannula vs non-way breather 11) Electrolyte imbalance * monitor and replete <Rebecca Rae - Last Filed: 06/13/16 15:02> Subjective - Date & Time of Evaluation Date of Evaluation: 06/13/16 Time of Evaluation: 09:00 - Subjective Subjective: Medicine Progress Note- Dr. Villalta's Service: Patient seen and examined at bedside this AM. Patient is sitting at side of bed in no acute distress. He admits to cough that is non productive. Denies shortness of breath, fevers, chills, nausea, vomiting, diarrhea, constipation. He is ambulating to and from bathroom with no issues. Objective - Vital Signs/Intake and Output Vital Signs (last 24 hours): Temp Pulse Resp BP Pulse Ox 99.2 F 89 19 127/61 92 L 06/13/16 08:21 06/13/16 08:21 06/13/16 08:21 06/13/16 08:21 06/13/16 08:21 - Medications Medications: Current Medications Acetaminophen (Tylenol 325mg Tab) 650 mg PO Q6H PRN PRN Reason: Fever >100.4 F Last Admin: 06/11/16 17:04 Dose: 650 mg Albuterol/Ipratropium (Duoneb 3 Mg/0.5 Mg (3 Ml) Ud) 3 ml INH RQ4 [facility] Last Admin: 06/13/16 04:20 Dose: Not Given Furosemide (Lasix) 20 mg PO DAILY [facility] Last Admin: 06/12/16 09:44 Dose: 20 mg Guaifenesin (Mucinex La) 600 mg PO BID [facility] Last Admin: 06/12/16 17:38 Dose: 600 mg Heparin Sodium (Porcine) (Heparin) 5,000 units SC Q8 [facility] Last Admin: 06/13/16 06:00 Dose: Not Given Moxifloxacin HCl (Avelox Iv 400mg/250ml Ns) 400 mg in 250 mls @ 167 mls/hr IVPB Q24H [facility] Last Admin: 06/12/16 14:24 Dose: 167 mls/hr Ceftriaxone Sodium 2 gm/ (Sodium Chloride) 100 mls @ 100 mls/hr IVPB DAILY [facility] Last Admin: 06/12/16 09:45 Dose: 100 mls/hr Sodium Chloride (Sodium Chloride 0.9%) 1,000 mls @ 40 mls/hr IV .Q24H [facility] Last Admin: 06/12/16 09:47 Dose: 40 mls/hr Insulin Glargine (Lantus) 35 unit SC HS [facility] Last Admin: 06/12/16 21:40 Dose: 35 u Insulin Human Regular (Novolin R) 0 unit SC ACHS [facility] PRN Reason: Protocol Last Admin: 06/12/16 22:00 Dose: Not Given Lisinopril (Zestril) 20 mg PO DAILY [facility] Last Admin: 06/12/16 09:48 Dose: 20 mg Montelukast Sodium (Singulair) 10 mg PO HS [facility] Last Admin: 06/12/16 21:40 Dose: 10 mg Nebivolol (Bystolic) 2.5 mg PO DAILY [facility] Last Admin: 06/12/16 09:44 Dose: 2.5 mg Nicotine (Nicoderm Cq) 1 patch TD DAILY [facility] Last Admin: 06/12/16 09:45 Dose: 1 patch Pantoprazole Sodium (Protonix Ec Tab) 40 mg PO DAILY [facility] Last Admin: 06/12/16 09:45 Dose: 40 mg Rosuvastatin Calcium (Crestor) 20 mg PO HS [facility] Last Admin: 06/12/16 21:39 Dose: 20 mg Fluticasone/Salmeterol (Advair Diskus 250/50) 1 puff INH RQ12 [facility] Last Admin: 06/12/16 19:52 Dose: 1 puff Tiotropium [place] (Spiriva) 18 mcg INH RQ24 [facility] Last Admin: 06/12/16 09:51 Dose: 18 mcg - Labs Labs: 06/13/16 08:55 06/12/16 07:04 PT 12.9 SECONDS (9.7-12.2) H 06/10/16 13:21 INR 1.2 06/10/16 13:21 APTT 30 SECONDS (21-34) 06/10/16 13:21 - Constitutional Appears: No Acute Distress, Chronically Ill - Head Exam Head Exam: NORMAL INSPECTION, NORMOCEPHALIC - Eye Exam Eye Exam: EOMI, Normal appearance - ENT Exam ENT Exam: Mucous Membranes Moist - Respiratory Exam Respiratory Exam: Decreased Breath Sounds, Rales, NORMAL BREATHING PATTERN - Cardiovascular Exam Cardiovascular Exam: REGULAR RHYTHM, +S1, +S2 - GI/Abdominal Exam GI & Abdominal Exam: Soft. absent: Distended, Tenderness - Extremities Exam Extremities Exam: Normal Inspection. absent: Pedal Edema - Back Exam Back Exam: NORMAL INSPECTION - Neurological Exam Neurological Exam: Alert, Awake, Oriented x3 - Skin Skin Exam: Normal Color, Warm Assessment and Plan - Assessment and Plan (Free Text) Assessment: 1) Sepsis * Admitted to [facility]. Criteria: [id number], tachycardic in 100s, WBC 14.4 with bandemia of 11 and left shift on admission. * Source is pneumonia seen on CTA and CXR. In the ED, received Maxipime and Avelox. * Today WBC 11.0. Afebrile overnight. * Lactic acid 0.9 --> 0.7--> 0.9 * Procalcitonin: 0.19 (low) * CXR 06/10/16- bilateral hilar prominence * NS 1L bolus x2 in the ED * D/C NS @40cc/hr * blood culture X2, sputum culture- negative X 48 hours * Abx: Avelox 400mg IV daily and Rocephin 2gram IV daily (active since 06/10/16) * Florastor 250mg PO bid * CT Angio (06/10/16): multifocal infectious bronchiolitis/pneumonia in the lungs bilaterally, no evidence of PE, mild bilateral hilar lymphadenopathy. emphysematous changes, incidental left adrenal lesion * Negative flu, negative Strep, negative legionella, negative Mycoplasma IgM 2) Pneumonia * Repeat CXR 06/12/16 - Minimal patchy bilateral pulmonary opacities consistent with multifocal infectious bronchiolitis or pneumonia demonstrated on CTA of the chest 06/10/16. Persistent bilateral hilar prominence compatible with bilateral hilar adenopathy. Emphysematous changes. * CXR 06/10/16- bilateral hilar prominence * CT Angio (06/10/16): suspicious multifocal infectious pneumonia in the lungs b/ l; mild bilateral hilar lymphadenopathy, emphysematous changes * Avelox 400mg IVPB daily and Rocephin 2gram IVq daily (active since 06/10/16) * Florastor 250mg PO bid * Pulmonary (Dr. Lemus) on board * Infectious Disease (Dr. Hull) on board * Negative flu, negative Strep, negative legionella, negative Mycoplasma IgM 3) Dyspnea * No Dyspnea this AM. * Pulmonology consult - Dr. Galaviz * Differentials to include: Pneumonia v. COPD exacerbation v. PE v. Lung CA * CT Angio (06/10/16): suspicious multifocal infectious pneumonia in the lungs b/ l; mild bilateral hilar lymphadenopathy, emphysematous changes * Procalcitonin: 0.16 (low) * O2 3L via [place] 4) Hx of Obstructive Sleep Apnea * CPAP to be titrated by respiratory therapy 5) COPD * Pulmonary (Dr. Lemus) on board-help appreciated * Duonebs 3ml INH RQ4 [facility] * Advair 250/50mg INH BID * Singulair 10mg PO HS * Spiriva 18mcg INH daily * Tobacco counselling to be provided 6) Tobacco abuse * Nictoine 21/day TD daily 7) H/O HTN * Continue home meds: lasix 20mg PO daily, Bystolic 2.5mg Po daily, lisinopril 20mg PO daily * Monitor vital signs 8)H/O DM * Uncontrolled * Hgba1c: 7.9 * increase to Lantus 35U SC HS--> increased to 40U SC HS 06/13/16. * RISS * Accuchecks QAC and HS * Holding home metformin 1000mg PO BID 9) H/O hyperlipidemia * Crestor 20mg subqHS * TG 124, Chol 131, LDL 71, HDL 30. 10) Prophylaxis * Protonix 40mg PO daily * Hep 5000U SC [id number] for DVT ppx * SCDS * PT/OT eval * Oxygen via nasal cannula vs non-way breather
[2016-06-13] MEDS: (Novolin R) Insulin Human Regular 100 units/ml vial SC SCH ×4 (09:21→22:09)
[2016-06-13] MEDS: Pantoprazole 40 mg EC Tab PO SCH (09:23)
[2016-06-13] MEDS: guaiFENesin 600 mg ER Tab PO SCH ×2 (09:25→17:32)
[2016-06-13 09:28] LABS: CHLORIDE 96 mmol/L (98-107); SODIUM 137 mmol/L (132-148)
[2016-06-13 09:31] LABS: ALB/GLOB RATIO 1.1 (1.0-2.1); ALKALINE PHOSPHATASE 69 U/L (38-126); AST/SGOT 17 U/L (17-59); BILIRUBIN,TOTAL 0.7 mg/dL (0.2-1.3); BLOOD UREA NITROGEN 9 mg/dL (9-20); CARBON DIOXIDE 31 mmol/L (22-30); GFR AFRICAN-AMERICAN > 60; GLUCOSE,RANDOM 214 mg/dL (75-110); TOTAL PROTEIN 6.4 g/dL (6.3-8.3)
[2016-06-13 09:32] LABS: ALT/SGPT 26 U/L (21-72); CALCIUM 8.2 mg/dl (8.6-10.4)
[2016-06-13] MEDS: cefTRIAXone 2 GM in Sodium Chloride 0.9% 100 ML IVPB SCH (11:00)
[2016-06-13] MEDS: Tiotropium 18 mcg Cap For Inhalation INH SCH (11:21)
[2016-06-13] MEDS: Fluticasone-Salmeterol 250-50mcg Diskus INH SCH ×2 (11:21→19:45)
[2016-06-13] MEDS ORDERED: Promethazine/Cod 6.25mg-10mg/5ml Syr UD PO PRN (12:53)
[2016-06-13] MEDS: Moxifloxacin IV 400mg/250ml NS 400 MG/250 ML BAG IVPB SCH (15:40)
--- NOTE | 2016-06-13 16:11 | CP.PCM.PN ---
Subjective - Date & Time of Evaluation Date of Evaluation: 06/13/16 Time of Evaluation: 09:00 - Subjective Subjective: IV RX RENEWED SEEN ON ROUNDS C/O CONSTIPATION Objective - Vital Signs/Intake and Output Vital Signs (last 24 hours): Temp Pulse Resp BP Pulse Ox 99.2 F 74 19 127/61 92 L 06/13/16 08:21 06/13/16 15:30 06/13/16 08:21 06/13/16 09:24 06/13/16 11:43 - Medications Medications: Current Medications Acetaminophen (Tylenol 325mg Tab) 650 mg PO Q6H PRN PRN Reason: Fever >100.4 F Last Admin: 06/11/16 17:04 Dose: 650 mg Albuterol/Ipratropium (Duoneb 3 Mg/0.5 Mg (3 Ml) Ud) 3 ml INH RQ4 [facility] Last Admin: 06/13/16 15:54 Dose: 3 ml Docusate Sodium (Colace) 100 mg PO BID EDIE Docusate Sodium (Colace) 100 mg PO BID EDIE Furosemide (Lasix) 20 mg PO DAILY [facility] Last Admin: 06/13/16 09:24 Dose: 20 mg Guaifenesin (Mucinex La) 600 mg PO BID [facility] Last Admin: 06/13/16 09:25 Dose: 600 mg Heparin Sodium (Porcine) (Heparin) 5,000 units SC Q8 [facility] Last Admin: 06/13/16 13:16 Dose: 5,000 units Moxifloxacin HCl (Avelox Iv 400mg/250ml Ns) 400 mg in 250 mls @ 167 mls/hr IVPB Q24H [facility] Last Admin: 06/12/16 14:24 Dose: 167 mls/hr Ceftriaxone Sodium 2 gm/ (Sodium Chloride) 100 mls @ 100 mls/hr IVPB DAILY [facility] Last Admin: 06/13/16 11:00 Dose: 100 mls/hr Insulin Glargine (Lantus) 40 unit SC HS [facility] Insulin Human Regular (Novolin R) 0 unit SC ACHS [facility] PRN Reason: Protocol Last Admin: 06/13/16 11:56 Dose: 3 unit Lisinopril (Zestril) 20 mg PO DAILY [facility] Last Admin: 06/13/16 09:24 Dose: 20 mg Montelukast Sodium (Singulair) 10 mg PO HS [facility] Last Admin: 06/12/16 21:40 Dose: 10 mg Nebivolol (Bystolic) 2.5 mg PO DAILY [facility] Last Admin: 06/13/16 09:25 Dose: 2.5 mg Nicotine (Nicoderm Cq) 1 patch TD DAILY [facility] Last Admin: 06/13/16 11:00 Dose: 1 patch Pantoprazole Sodium (Protonix Ec Tab) 40 mg PO DAILY [facility] Last Admin: 06/13/16 09:23 Dose: 40 mg Promethazine HCl/Codeine (Phenergan/Codeine Oral Syrup) 5 ml PO Q4 PRN PRN Reason: Cough Rosuvastatin Calcium (Crestor) 20 mg PO HS [facility] Last Admin: 06/12/16 21:39 Dose: 20 mg Fluticasone/Salmeterol (Advair Diskus 250/50) 1 puff INH RQ12 [facility] Last Admin: 06/13/16 11:21 Dose: 1 puff Tiotropium [place] (Spiriva) 18 mcg INH RQ24 [facility] Last Admin: 06/13/16 11:21 Dose: 18 mcg - Labs Labs: 06/13/16 08:55 06/13/16 08:55 PT 12.9 SECONDS (9.7-12.2) H 06/10/16 13:21 INR 1.2 06/10/16 13:21 APTT 30 SECONDS (21-34) 06/10/16 13:21 - Constitutional Appears: Chronically Ill - Head Exam Head Exam: NORMOCEPHALIC - Eye Exam Eye Exam: PERRL. absent: Scleral icterus - ENT Exam ENT Exam: Mucous Membranes Dry - Neck Exam Neck Exam: absent: Lymphadenopathy - Respiratory Exam Respiratory Exam: Decreased Breath Sounds, Rhonchi - Cardiovascular Exam Cardiovascular Exam: REGULAR RHYTHM, +S1, +S2 - GI/Abdominal Exam GI & Abdominal Exam: Distended, Soft. absent: Tenderness - Exam Exam: NORMAL INSPECTION - Extremities Exam Extremities Exam: absent: Calf Tenderness, Pedal Edema - Back Exam Back Exam: absent: CVA tenderness (L), CVA tenderness (R) - Neurological Exam Neurological Exam: Alert, Awake, Oriented x3 - Psychiatric Exam Psychiatric exam: Normal Mood - Skin Skin Exam: Dry Assessment and Plan (1) COPD exacerbation Status: Acute (2) Fever Status: Resolved (3) Weakness Status: Acute (4) Pulmonary embolism Status: Ruled-out
[2016-06-13 16:37] VITALS: RESP 20
[2016-06-13] MEDS: (Lantus) Insulin Glargine, Recombinant SC SCH (22:02)
[2016-06-14] MEDS: Albuterol-Ipratrop 3 mg / 0.5 (3 ml) UD INH SCH ×7 (00:22→23:41)
[2016-06-14 06:44] LABS: CHLORIDE 92 mmol/L (98-107); POTASSIUM 4.1 mmol/L (3.6-5.2); SODIUM 135 mmol/L (132-148)
[2016-06-14 06:46] LABS: BILIRUBIN,TOTAL 0.7 mg/dL (0.2-1.3); CARBON DIOXIDE 35 mmol/L (22-30); GFR AFRICAN-AMERICAN > 60
[2016-06-14 06:47] LABS: ALB/GLOB RATIO 1.1 (1.0-2.1); ALKALINE PHOSPHATASE 75 U/L (38-126); ALT/SGPT 30 U/L (21-72); AST/SGOT 21 U/L (17-59); BASO # 0.1 K/uL (0.0-0.2); BLOOD UREA NITROGEN 10 mg/dL (9-20); CALCIUM 8.3 mg/dl (8.6-10.4); EOS # 0.5 K/uL (0.0-0.7); EOS % 4.3 % (0.0-4.0); GLUCOSE,RANDOM 193 mg/dL (75-110); HEMATOCRIT 36.7 % (35.0-51.0); LYMPH % 18.1 % (20.0-40.0); MAGNESIUM 1.9 mg/dL (1.6-2.3); MEAN CELL VOLUME 91.7 fL (80.0-94.0); MEAN CORPUSCULAR HEMOGLOBIN 30.4 pg (27.0-31.0); MEAN CORPUSCULAR HGB CONC 33.2 g/dL (33.0-37.0); MEAN PLATELET VOLUME 7.8 fL (7.2-11.7); MONO # 1.5 K/uL (0.0-0.8); MONO % 13.3 % (0.0-10.0); PHOSPHOROUS 3.8 mg/dL (2.5-4.5); RED CELL DISTRIBUTION WIDTH 13.8 % (11.5-14.5); TOTAL PROTEIN 6.6 g/dL (6.3-8.3); WHITE BLOOD COUNT 11.1 K/uL (4.8-10.8)
[2016-06-14] MEDS: Tiotropium 18 mcg Cap For Inhalation INH SCH (07:23)
[2016-06-14] MEDS: Fluticasone-Salmeterol 250-50mcg Diskus INH SCH ×2 (07:23→20:04)
[2016-06-14] MEDS: (Novolin R) Insulin Human Regular 100 units/ml vial SC SCH ×4 (07:46→22:00)
[2016-06-14] MEDS: guaiFENesin 600 mg ER Tab PO SCH ×2 (09:42→17:36)
[2016-06-14] MEDS: Pantoprazole 40 mg EC Tab PO SCH (09:43)
[2016-06-14] MEDS: cefTRIAXone 2 GM in Sodium Chloride 0.9% 100 ML IVPB SCH (09:44)
--- NOTE | 2016-06-14 12:19 | CP.PCM.PN ---
<Wendy Beckman - Last Filed: 06/14/16 12:32> Subjective - Date & Time of Evaluation Date of Evaluation: 06/14/16 Time of Evaluation: 07:35 - Subjective Subjective: PGY 1 Med Note- Dr. Villalta's service Patient seen and examined in no acute distress. Patient states that he feels better. He is out of bed to chair but does not ambulate much. Patient denies chest pain, wheezes, palpitations, nausea, vomiting, abdominal pain, paresthesias at this time. Objective - Vital Signs/Intake and Output Vital Signs (last 24 hours): Temp Pulse Resp BP Pulse Ox 99.1 F 86 20 150/75 95 06/14/16 07:35 06/14/16 07:35 06/14/16 07:35 06/14/16 09:42 06/14/16 07:35 Intake and Output: 06/14/16 06/14/16 06:59 18:59 Output Total 300 Balance -300 - Medications Medications: Current Medications Acetaminophen (Tylenol 325mg Tab) 650 mg PO Q6H PRN PRN Reason: Fever >100.4 F Last Admin: 06/14/16 06:06 Dose: 650 mg Albuterol/Ipratropium (Duoneb 3 Mg/0.5 Mg (3 Ml) Ud) 3 ml INH RQ4 [facility] Last Admin: 06/14/16 11:11 Dose: 3 ml Docusate Sodium (Colace) 100 mg PO BID [facility] Last Admin: 06/14/16 09:41 Dose: 100 mg Furosemide (Lasix) 20 mg PO DAILY [facility] Last Admin: 06/14/16 09:42 Dose: 20 mg Guaifenesin (Mucinex La) 600 mg PO BID [facility] Last Admin: 06/14/16 09:42 Dose: 600 mg Heparin Sodium (Porcine) (Heparin) 5,000 units SC Q8 [facility] Last Admin: 06/14/16 06:00 Dose: 5,000 units Moxifloxacin HCl (Avelox Iv 400mg/250ml Ns) 400 mg in 250 mls @ 167 mls/hr IVPB Q24H [facility] Last Admin: 06/13/16 15:40 Dose: 167 mls/hr Ceftriaxone Sodium 2 gm/ (Sodium Chloride) 100 mls @ 100 mls/hr IVPB DAILY [facility] Last Admin: 06/14/16 09:44 Dose: 100 mls/hr Insulin Glargine (Lantus) 40 unit SC HS [facility] Last Admin: 06/13/16 22:02 Dose: 40 units Insulin Human Regular (Novolin R) 0 unit SC [facility] PRN Reason: Protocol Last Admin: 06/14/16 12:07 Dose: 4 unit Lisinopril (Zestril) 20 mg PO DAILY [facility] Last Admin: 06/14/16 09:43 Dose: 20 mg Montelukast Sodium (Singulair) 10 mg PO HS [facility] Last Admin: 06/13/16 22:02 Dose: 10 mg Nebivolol (Bystolic) 2.5 mg PO DAILY [facility] Last Admin: 06/14/16 09:40 Dose: 2.5 mg Nicotine (Nicoderm Cq) 1 patch TD DAILY [facility] Last Admin: 06/14/16 09:43 Dose: 1 patch Pantoprazole Sodium (Protonix Ec Tab) 40 mg PO DAILY [facility] Last Admin: 06/14/16 09:43 Dose: 40 mg Promethazine HCl/Codeine (Phenergan/Codeine Oral Syrup) 5 ml PO Q4 PRN PRN Reason: Cough Rosuvastatin Calcium (Crestor) 20 mg PO [facility] Last Admin: 06/13/16 22:02 Dose: 20 mg Fluticasone/Salmeterol (Advair Diskus 250/50) 1 puff INH RQ12 [facility] Last Admin: 06/14/16 07:23 Dose: 1 puff Tiotropium [place] (Spiriva) 18 mcg INH RQ24 [facility] Last Admin: 06/14/16 07:23 Dose: 18 mcg - Labs Labs: 06/14/16 06:22 06/14/16 06:22 PT 12.9 SECONDS (9.7-12.2) H 06/10/16 13:21 INR 1.2 06/10/16 13:21 APTT 30 SECONDS (21-34) 06/10/16 13:21 - Constitutional Appears: Non-toxic, No Acute Distress - Head Exam Head Exam: ATRAUMATIC, NORMAL INSPECTION, NORMOCEPHALIC - Eye Exam Eye Exam: EOMI, Normal appearance, PERRL Pupil Exam: NORMAL ACCOMODATION, PERRL - ENT Exam ENT Exam: Mucous Membranes Moist - Neck Exam Neck Exam: Full ROM - Respiratory Exam Respiratory Exam: Decreased Breath Sounds. absent: Wheezes Additional comments: decreased movement of air in lower lobes - Cardiovascular Exam Cardiovascular Exam: +S1, +S2 - GI/Abdominal Exam GI & Abdominal Exam: Soft, Normal Bowel Sounds. absent: Tenderness - Extremities Exam Extremities Exam: Full ROM - Back Exam Back Exam: Full ROM - Neurological Exam Neurological Exam: Alert, Awake, Oriented x3 - Psychiatric Exam Psychiatric exam: Flat Affect, Normal Affect, Normal Mood - Skin Skin Exam: Dry, Normal Color, Warm Assessment and Plan - Assessment and Plan (Free Text) Assessment: 1) Sepsis * Resolved * On admission: Telemetry. Criteria: [id number], tachycardic in 100s, WBC 14.4 with bandemia of 11 and left shift on admission. * Source is pneumonia seen on CTA and CXR. In the ED, received Maxipime and Avelox. * Today WBC 11.1. Afebrile overnight. * Lactic acid 0.9 --> 0.7--> 0.9 * Procalcitonin: 0.19 (low) * CXR 06/10/16- bilateral hilar prominence * NS 1L bolus x2 in the ED * D/C NS @40cc/hr * blood culture X2, sputum culture- negative X 48 hours * Abx: Avelox 400mg IV daily and Rocephin 2gram IV daily (active since 06/10/16) * Florastor 250mg PO bid * CT Angio (06/10/16): multifocal infectious bronchiolitis/pneumonia in the lungs bilaterally, no evidence of PE, mild bilateral hilar lymphadenopathy. emphysematous changes, incidental left adrenal lesion * Negative flu, negative Strep, negative legionella, negative Mycoplasma IgM 2) Pneumonia * CXR 06/12/16 - Minimal patchy bilateral pulmonary opacities consistent with multifocal infectious bronchiolitis or pneumonia demonstrated on CTA of the chest 06/10/16. Persistent bilateral hilar prominence compatible with bilateral hilar adenopathy. Emphysematous changes. * CXR 06/10/16- bilateral hilar prominence * CT Angio (06/10/16): suspicious multifocal infectious pneumonia in the lungs b/ l; mild bilateral hilar lymphadenopathy, emphysematous change * Avelox 400mg IVPB daily and Rocephin 2gram IV daily (active since 06/10/16) * Florastor 250mg PO bid * Pulmonary (Dr. Lemus) on board * Infectious Disease (Dr. Hull) on board. Cont IV abx. Will transition to PO on discharge * Negative flu, negative Strep, negative legionella, negative Mycoplasma IgM 3) Dyspnea * No Dyspnea noted this AM. * Pulmonology consult - Dr. Galaviz. F/U recommendations. Patient encouraged to follow up outpatient as well with new diagnosis of COPD * Differentials to include: Pneumonia v. COPD exacerbation v. PE v. Lung CA * CT Angio (06/10/16): suspicious multifocal infectious pneumonia in the lungs b/ l; mild bilateral hilar lymphadenopathy, emphysematous changes * Procalcitonin: 0.16 (low) * O2 3L via NC 4) Hx of Obstructive Sleep Apnea * CPAP to be titrated by respiratory therapy. F/U recommendations 5) COPD * Pulmonary (Dr. Lemus) on board- F/U * Duonebs 3ml INH RQ4 [facility] * Advair 250/50mg INH BID * Singulair 10mg PO HS * Spiriva 18mcg INH daily * Tobacco counselling to be provided 6) Tobacco abuse * Nicotine 21/day TD daily * Encourage cessation 7) H/O HTN * Continue home meds: Lasix 20mg PO daily, Bystolic 2.5mg Po daily, lisinopril 20mg PO daily * Monitor vital signs 8)H/O DM * Uncontrolled * Hgba1c: 7.9 * increase to Lantus 35U SC HS--> increased to 40U SC HS 06/13/16. * RISS * Accuchecks QAC and HS * Holding home metformin 1000mg PO BID 9) H/O hyperlipidemia * Crestor 20mg SC HS * TG 124, Chol 131, LDL 71, HDL 30. 10) Prophylaxis * Protonix 40mg PO daily * Hep 5000U SC [id number] for DVT ppx * SCDS * PT/OT eval- Home with services. Encourage OOB and ambulation with assistance if needed * Oxygen via nasal cannula vs non-way breather Disp: Likely D/C tmrw <Ernestina Villalta V - Last Filed: 06/15/16 00:46> Objective - Vital Signs/Intake and Output Vital Signs (last 24 hours): Temp Pulse Resp BP Pulse Ox 98.6 F 85 20 143/73 98 06/14/16 15:00 06/14/16 16:00 06/14/16 15:00 06/14/16 15:00 06/14/16 15:00 Intake and Output: 06/14/16 06/15/16 18:59 06:59 Output Total 350 Balance -350 - Medications Medications: Current Medications Acetaminophen (Tylenol 325mg Tab) 650 mg PO Q6H PRN PRN Reason: Fever >100.4 F Last Admin: 06/14/16 06:06 Dose: 650 mg Albuterol/Ipratropium (Duoneb 3 Mg/0.5 Mg (3 Ml) Ud) 3 ml INH RQ4 [facility] Last Admin: 06/14/16 23:41 Dose: Not Given Docusate Sodium (Colace) 100 mg PO BID [facility] Last Admin: 06/14/16 17:36 Dose: 100 mg Furosemide (Lasix) 20 mg PO DAILY [facility] Last Admin: 06/14/16 09:42 Dose: 20 mg Guaifenesin (Mucinex La) 600 mg PO BID [facility] Last Admin: 06/14/16 17:36 Dose: 600 mg Heparin Sodium (Porcine) (Heparin) 5,000 units SC Q8 [facility] Last Admin: 06/14/16 22:37 Dose: 5,000 units Moxifloxacin HCl (Avelox Iv 400mg/250ml Ns) 400 mg in 250 mls @ 167 mls/hr IVPB Q24H [facility] Last Admin: 06/14/16 14:08 Dose: 167 mls/hr Ceftriaxone Sodium 2 gm/ (Sodium Chloride) 100 mls @ 100 mls/hr IVPB DAILY [facility] Last Admin: 06/14/16 09:44 Dose: 100 mls/hr Insulin Glargine (Lantus) 40 unit SC HS [facility] Last Admin: 06/14/16 22:42 Dose: 40 units Insulin Human Regular (Novolin R) 0 unit SC ACHS [facility] PRN Reason: Protocol Last Admin: 06/14/16 22:00 Dose: Not Given Lisinopril (Zestril) 20 mg PO DAILY [facility] Last Admin: 06/14/16 09:43 Dose: 20 mg Montelukast Sodium (Singulair) 10 mg PO HS [facility] Last Admin: 06/14/16 22:36 Dose: 10 mg Nebivolol (Bystolic) 2.5 mg PO DAILY [facility] Last Admin: 06/14/16 09:40 Dose: 2.5 mg Nicotine (Nicoderm Cq) 1 patch TD DAILY [facility] Last Admin: 06/14/16 09:43 Dose: 1 patch Pantoprazole Sodium (Protonix Ec Tab) 40 mg PO DAILY [facility] Last Admin: 06/14/16 09:43 Dose: 40 mg Promethazine HCl/Codeine (Phenergan/Codeine Oral Syrup) 5 ml PO Q4 PRN PRN Reason: Cough Rosuvastatin Calcium (Crestor) 20 mg PO HS [facility] Last Admin: 06/14/16 22:37 Dose: 20 mg Fluticasone/Salmeterol (Advair Diskus 250/50) 1 puff INH RQ12 [facility] Last Admin: 06/14/16 20:04 Dose: 1 puff Tiotropium [place] (Spiriva) 18 mcg INH RQ24 [facility] Last Admin: 06/14/16 07:23 Dose: 18 mcg - Labs Labs: 06/14/16 06:22 06/14/16 06:22 PT 12.9 SECONDS (9.7-12.2) H 06/10/16 13:21 INR 1.2 06/10/16 13:21 APTT 30 SECONDS (21-34) 06/10/16 13:21 Attending/Attestation - Attestation I have personally seen and examined this patient.: Yes I have fully participated in the care of the patient.: Yes I have reviewed all pertinent clinical information, including history, physical exam and plan: Yes Notes (Text): This is late computer entry for 06/14/16. Patient seen, examined, and case discussed with day-time resident. Patient clinically improving. Patient is awake, alert, but lethargic at bedside. Patient's lung examined +rales and rhonchi. Patient will need to work with PT and monitor lung exam. Continue IV abx to cover for multilobar pneumonia. Cultures thus far negative. PT/OT eval. SARA eval. Discussed with ID, c/w IV abx. Assessment/Plan 1) Sepsis * Criteria: [id number], tachycardic in 100s, WBC 14.4 with bandemia of 11 and left shift; Criteria: multillobar pneumonia * Lactic acid 0.9 --> 0.7--> 0.9 * Procalcitonin: 0.19 (low) * CXR 06/10/16- bilateral hilar prominence * Admit to telemetry * In the ED, received Maxipime and Avelox * Abx: Avelox 400mg IV daily and Rocephin 2gram IV daily (active since 06/10/16) * Florastor 250mg PO bid * CT Angio (06/10/16): multifocal infectious bronchiolitis/pneumonia in the lungs bilaterally, no evidence of PE, mild bilateral hilar lymphadenopathy. emphysematous changes, incidental left adrenal lesion * Chest xray (06/12/16): minimal patchy bilateral pulmonary opacities consistent with multifocal infectious brochiolitis or pneumonia demonstrated of CTA of the chest 06/10/16, persistent bilateral hilar prominence compatible with bilateral hilar adenopathy. Emphysematous changes. * 06/10 Blood Culture: No growth After 3 days * 06/10/16 Urine culture: no growth * 06/11/16 Sputum: no growth * Negative flu, negative Strep, negative legionella, negative Mycoplasma IgM 2) Pneumonia * Pulmonary (Dr. Leums) on board * Infectious Disease (Dr. Hull) on board * CXR 06/10/16- bilateral hilar prominence * CT Angio (06/10/16): suspicious multifocal infectious pneumonia in the lungs b/ l; mild bilateral hilar lymphadenopathy, emphysematous changes * Chest xray (06/12/16): minimal patchy bilateral pulmonary opacities consistent with multifocal infectious brochiolitis or pneumonia demonstrated of CTA of the chest 06/10/16, persistent bilateral hilar prominence compatible with bilateral hilar adenopathy. Emphysematous changes. * Avelox 400mg IVPB daily and Rocephin 2gram IVq daily (active since 06/10/16) * Florastor 250mg PO bid * Negative flu, negative Strep, negative legionella, negative Mycoplasma IgM 3) Dyspnea * Differentials to include: Multilobar Pneumonia * CT Angio (06/10/16): suspicious multifocal infectious pneumonia in the lungs b/ l; mild bilateral hilar lymphadenopathy, emphysematous changes * Chest xray (06/12/16): minimal patchy bilateral pulmonary opacities consistent with multifocal infectious brochiolitis or pneumonia demonstrated of CTA of the chest 06/10/16, persistent bilateral hilar prominence compatible with bilateral hilar adenopathy. Emphysematous changes. * Procalcitonin: 0.16 (low) * O2 3L via NC * Pulmonology consult - Dr. Galaviz * Phenergan w codeine 5ml PO Q 4hour PRN cough * Mucinex 600mg PO bid 4) Hx of Obstructive Sleep Apnea * CPAP to be titrated by respiratory therapy 5) COPD * Pulmonary (Dr. Lemus) on board-->help appreciated * Duonebs 3ml INH RQ4 [facility] * Advair 250/50mg INH BID * Singulair 10mg PO HS * Spiriva 18mcg INH daily * (patient takes albuterol and flovent inhaler at home) * Tobacco counselling to be provided * Phenergan w codeine 5ml PO Q 4hour PRN cough * Mucinex 600mg PO bid 6) Tobacco abuse * Nicotine 21/day TD daily 7) H/O HTN * Continue home meds: lasix 20mg PO daily, Bystolic 2.5mg Po daily, lisinopril 20mg PO daily * Monitor vital signs 8)H/O DM * Uncontrolled * Hgba1c: 7.9 * increase to Lantus 40 U SC QHS * RISS * Accuchecks QAC and HS * Holding home metformin 1000mg PO BID 9) H/O hyperlipidemia * Crestor 20mg subqHS * T, cholestrol: 131, LDL: 71, HDL:30 10) Prophylaxis * Protonix 40mg PO daily * Hep 5000U SC [id number] for DVT ppx * SCDS * PT/OT eval * Oxygen via nasal cannula vs non-way breather 11) Electrolyte imbalance * monitor and replete
[2016-06-14] MEDS: Moxifloxacin IV 400mg/250ml NS 400 MG/250 ML BAG IVPB SCH (14:08)
[2016-06-14] MEDS: (Lantus) Insulin Glargine, Recombinant SC SCH (22:42)
[2016-06-15] MEDS: Albuterol-Ipratrop 3 mg / 0.5 (3 ml) UD INH SCH ×4 (03:05→15:39)
[2016-06-15] MEDS: Fluticasone-Salmeterol 250-50mcg Diskus INH SCH (07:15)
[2016-06-15] MEDS: Tiotropium 18 mcg Cap For Inhalation INH SCH (07:16)
[2016-06-15 07:45] LABS: BASO # 0.1 K/uL (0.0-0.2); BASO % 0.7 % (0.0-2.0); EOS # 0.5 K/uL (0.0-0.7); EOS % 4.3 % (0.0-4.0); HEMATOCRIT 37.3 % (35.0-51.0); LYMPH % 16.1 % (20.0-40.0); MEAN CELL VOLUME 91.1 fL (80.0-94.0); MEAN CORPUSCULAR HEMOGLOBIN 30.6 pg (27.0-31.0); MEAN CORPUSCULAR HGB CONC 33.6 g/dL (33.0-37.0); MEAN PLATELET VOLUME 7.7 fL (7.2-11.7); MONO # 1.4 K/uL (0.0-0.8); MONO % 11.6 % (0.0-10.0); NRBC % 0.2 % (0.0-2.0); RED CELL DISTRIBUTION WIDTH 13.9 % (11.5-14.5); WHITE BLOOD COUNT 12.4 K/uL (4.8-10.8)
[2016-06-15] MEDS: (Novolin R) Insulin Human Regular 100 units/ml vial SC SCH ×3 (07:47→17:32)
[2016-06-15 07:49] LABS: CHLORIDE 92 mmol/L (98-107); POTASSIUM 4.1 mmol/L (3.6-5.2); SODIUM 135 mmol/L (132-148)
[2016-06-15 07:51] LABS: ALB/GLOB RATIO 1.1 (1.0-2.1); ALKALINE PHOSPHATASE 74 U/L (38-126); AST/SGOT 82 U/L (17-59); BILIRUBIN,TOTAL 0.7 mg/dL (0.2-1.3); BLOOD UREA NITROGEN 14 mg/dL (9-20); CARBON DIOXIDE 33 mmol/L (22-30); GFR AFRICAN-AMERICAN > 60; TOTAL PROTEIN 6.7 g/dL (6.3-8.3)
[2016-06-15 07:52] LABS: ALT/SGPT 88 U/L (21-72); CALCIUM 8.8 mg/dl (8.6-10.4); GLUCOSE,RANDOM 190 mg/dL (75-110); PHOSPHOROUS 4.5 mg/dL (2.5-4.5)
[2016-06-15] MEDS: guaiFENesin 600 mg ER Tab PO SCH ×2 (10:10→17:31)
[2016-06-15] MEDS: Pantoprazole 40 mg EC Tab PO SCH (10:11)
[2016-06-15] MEDS: cefTRIAXone 2 GM in Sodium Chloride 0.9% 100 ML IVPB SCH (10:11)
--- NOTE | 2016-06-15 10:19 | VASCLAB ---
PROCEDURE: Lower Extremity Venous Duplex Exam. HISTORY: cyclical fevers rule out DVT PRIORS: None. TECHNIQUE: Bilateral common femoral, femoral, popliteal and posterior tibial, peroneal and great saphenous veins were evaluated. Flow was assessed with color Doppler, compressibility, assessment of phasic flow and augmentation response. Report prepared by GHADA Meyers, RVT FINDINGS: RIGHT: 1. Common Femoral Vein: 1.1. Compressibility - Fully compressible: Thrombus - None : Flow - Phasic: Augmentation -Normal: Reflux - None. 2. Femoral Vein: 2.1. Compressibility - Fully compressible: Thrombus - None : Flow - Phasic: Augmentation -Normal: Reflux - None. 3. Popliteal Vein: 3.1. Compressibility - Fully compressible: Thrombus - None : Flow - Phasic: Augmentation -Normal: Reflux - None. 4. Posterior Tibial Vein: 4.1. Compressibility - Fully compressible: Thrombus - None: Flow - Phasic: Augmentation -Normal: Reflux - None. 5. Peroneal Vein: 5.1. Compressibility - Fully compressible: Thrombus - None: Flow - Phasic: Augmentation -Normal: Reflux - None. 6. Great Saphenous Vein: 6.1. Compressibility - Fully compressible: Thrombus - None: Flow - Phasic: Augmentation - Normal: Reflux - None. LEFT: 1. Common Femoral Vein: 1.1. Compressibility - Fully compressible: Thrombus - None: Flow - Phasic: Augmentation -Normal: Reflux - None. 2. Femoral Vein: 2.1. Compressibility - Fully compressible: Thrombus - None: Flow - Phasic: Augmentation -Normal: Reflux - None. 3. Popliteal Vein: 3.1. Compressibility - Fully compressible: Thrombus - None : Flow - Phasic: Augmentation -Normal: Reflux - None. 4. Posterior Tibial Vein: 4.1. Compressibility - Fully compressible: Thrombus - None: Flow - Phasic: Augmentation -Normal: Reflux - None. 5. Peroneal Vein: 5.1. Compressibility - Fully compressible: Thrombus - None: Flow - Phasic: Augmentation -Normal: Reflux - None. 6. Great Saphenous Vein: 6.1. Compressibility - Fully compressible: Thrombus - None: Flow - Phasic: Augmentation - Normal: Reflux - None. OTHER FINDINGS: Right: None significant. Left: None significant. IMPRESSION: Right: No evidence of deep or superficial vein thrombosis of the right lower extremity. Normal valve function noted of the right side. Left: No evidence of deep or superficial vein thrombosis of the left lower extremity. Normal valve function noted of the left side.
--- NOTE | 2016-06-15 11:32 | CP.PCM.DIS ---
<Wendy Beckman - Last Filed: 06/15/16 20:13> Provider - Provider Date of Admission: 06/10/16 15:58 Attending physician: DO Nader Aguilar DO Primary care physician: Dr. Gray Mcgregor Consults: ID: Dr Hull Pulm: Dr. Galaviz Time Spent in preparation of Discharge (in minutes): 36 Diagnosis - Discharge Diagnosis (1) Sepsis Status: Resolved (2) Pneumonia Status: Acute (3) Dyspnea Status: Resolved (4) LYLE (obstructive sleep apnea) Status: Chronic (5) COPD (chronic obstructive pulmonary disease) Status: Acute (6) Tobacco use disorder Status: Chronic (7) Hypertension Status: Chronic (8) Diabetes mellitus Status: Chronic (9) Hyperlipidemia Status: Chronic Hospital Course - Lab Results Lab Results: Micro Results 06/11/16 15:00 Sputum Gram Stain - Final 06/11/16 15:00 Sputum Sputum Culture - Final NORMAL ORAL ROMI Most Recent Lab Values WBC 12.4 K/uL (4.8-10.8) H 06/15/16 07:30 RBC 4.09 Mil/uL (4.40-5.90) L 06/15/16 07:30 Hgb 12.5 g/dL (12.0-18.0) 06/15/16 07:30 Hct 37.3 % (35.0-51.0) 06/15/16 07:30 MCV 91.1 fL (80.0-94.0) 06/15/16 07:30 MCH 30.6 pg (27.0-31.0) 06/15/16 07:30 MCHC 33.6 g/dL (33.0-37.0) 06/15/16 07:30 RDW 13.9 % (11.5-14.5) 06/15/16 07:30 Plt Count 342 K/uL (130-400) 06/15/16 07:30 MPV 7.7 fL (7.2-11.7) 06/15/16 07:30 Neut % (Auto) 67.3 % (50.0-75.0) 06/15/16 07:30 Lymph % (Auto) 16.1 % (20.0-40.0) L 06/15/16 07:30 Toole % (Auto) 11.6 % (0.0-10.0) H 06/15/16 07:30 Eos % (Auto) 4.3 % (0.0-4.0) H 06/15/16 07:30 Baso % (Auto) 0.7 % (0.0-2.0) 06/15/16 07:30 Neut # 8.4 K/uL (1.8-7.0) H 06/15/16 07:30 Lymph # 2.0 K/uL (1.0-4.3) 06/15/16 07:30 Toole # 1.4 K/uL (0.0-0.8) H 06/15/16 07:30 Eos # 0.5 K/uL (0.0-0.7) 06/15/16 07:30 Baso # 0.1 K/uL (0.0-0.2) 06/15/16 07:30 Neutrophils % (Manual) 75 % (50-75) 06/10/16 13:21 Band Neutrophils % 11 % (0-2) H* 06/10/16 13:21 Lymphocytes % (Manual) 5 % (20-40) L 06/10/16 13:21 Reactive Lymphs % 1 % (0-0) H 06/10/16 13:21 Monocytes % (Manual) 8 % (0-10) 06/10/16 13:21 Platelet Estimate Normal (NORMAL) 06/10/16 13:21 RBC Morphology Normal 06/10/16 13:21 PT 12.9 SECONDS (9.7-12.2) H 06/10/16 13:21 INR 1.2 06/10/16 13:21 APTT 30 SECONDS (21-34) 06/10/16 13:21 D-Dimer, Quantitative 369 ng/mlDDU (0-243) H 06/10/16 17:14 Puncture Site Rra 06/10/16 19:15 pCO2 50 mm/Hg (35-45) H 06/10/16 19:15 pO2 64 mm/Hg (80-100) L 06/10/16 19:15 HCO3 24.7 mmol/L (21-28) 06/10/16 19:15 ABG pH 7.33 (7.35-7.45) L 06/10/16 19:15 ABG Total CO2 27.9 mmol/L (22-28) 06/10/16 19:15 ABG O2 Saturation 94.2 % (95-98) L 06/10/16 19:15 ABG Base Excess -0.1 mmol/L (-2.0-3.0) 06/10/16 19:15 ABG Hemoglobin 11.5 g/dL (11.7-17.4) L 06/10/16 19:15 ABG Carboxyhemoglobin 2.4 % (0.5-1.5) H 06/10/16 19:15 POC ABG HHb (Measured) 5.5 % (0.0-5.0) H 06/10/16 19:15 ABG Methemoglobin 2.0 % (0.0-3.0) 06/10/16 19:15 [place] Test Pos 06/10/16 19:15 VBG pH 7.29 (7.32-7.43) L 06/10/16 15:35 VBG pCO2 55 mmHg (40-60) 06/10/16 15:35 VBG HCO3 23.0 mmol/L 06/10/16 15:35 VBG Total CO2 28.1 mmol/L (22-28) H 06/10/16 15:35 VBG O2 Sat (Calc) 70.3 % (40-65) H 06/10/16 15:35 VBG Base Excess -1.1 mmol/L (0.0-2.0) L 06/10/16 15:35 VBG Potassium 3.3 mmol/L (3.6-5.2) L 06/10/16 15:35 Hgb O2 Saturation 90.1 % (95.0-98.0) L 06/10/16 19:15 Sodium 142.0 mmol/l (132-148) 06/10/16 15:35 Chloride 111.0 mmol/L (98-107) H 06/10/16 15:35 Glucose 177 mg/dl (75-110) H 06/10/16 15:35 Lactate 0.7 mmol/L (0.7-2.1) 06/10/16 15:35 Liter Flow 3.0 06/10/16 19:15 Sodium 135 mmol/L (132-148) 06/15/16 07:30 Potassium 4.1 mmol/L (3.6-5.2) 06/15/16 07:30 Chloride 92 mmol/L (98-107) L 06/15/16 07:30 Carbon Dioxide 33 mmol/L (22-30) H 06/15/16 07:30 Anion Gap 14 (10-20) 06/15/16 07:30 BUN 14 mg/dL (9-20) 06/15/16 07:30 Creatinine 0.8 MG/DL (0.8-1.5) 06/15/16 07:30 Est GFR ( Amer) > 60 06/15/16 07:30 Est GFR (Non-Af Amer) > 60 06/15/16 07:30 POC Glucose (mg/dL) 199 mg/dL (65-110) H 06/15/16 06:27 Random Glucose 190 mg/dL (75-110) H 06/15/16 07:30 Hemoglobin A1c 7.9 % (4.2-6.5) H 06/11/16 08:29 Lactic Acid 0.9 mmol/L (0.7-2.1) 06/10/16 22:02 Calcium 8.8 mg/dl (8.6-10.4) 06/15/16 07:30 Phosphorus 4.5 mg/dL (2.5-4.5) 06/15/16 07:30 Magnesium 2.0 mg/dL (1.6-2.3) 06/15/16 07:30 Total Bilirubin 0.7 mg/dL (0.2-1.3) 06/15/16 07:30 AST 82 U/L (17-59) H D 06/15/16 07:30 ALT 88 U/L (21-72) H D 06/15/16 07:30 Alkaline Phosphatase 74 U/L (38-126) 06/15/16 07:30 NT-Pro-B Natriuret Pep 186 pg/mL (0-900) 06/11/16 08:29 Total Protein 6.7 g/dL (6.3-8.3) 06/15/16 07:30 Albumin 3.5 g/dL (3.5-5.0) 06/15/16 07:30 Globulin 3.1 gm/dL (2.2-3.9) 06/15/16 07:30 Albumin/Globulin Ratio 1.1 (1.0-2.1) 06/15/16 07:30 Triglycerides 124 mg/dL (0-149) 06/12/16 07:04 Cholesterol 131 mg/dL (0-199) 06/12/16 07:04 LDL Cholesterol Direct 71 mg/dL (0-129) 06/12/16 07:04 HDL Cholesterol 30 mg/dL (30-70) 06/12/16 07:04 Procalcitonin 0.16 NG/ML (0.19-0.49) L 06/10/16 16:55 Venous Blood Potassium 3.3 mmol/L (3.6-5.2) L 06/10/16 15:35 Urine Color Yellow (YELLOW) 06/10/16 14:50 Urine Clarity Hazy (Clear) 06/10/16 14:50 Urine pH 5.0 (5.0-8.0) 06/10/16 14:50 Ur Specific Mcdonald 1.019 (1.003-1.030) 06/10/16 14:50 Urine Protein 2+ mg/dL (NEGATIVE) H 06/10/16 14:50 Urine Glucose (UA) 2+ mg/dL (Normal) H 06/10/16 14:50 Urine Ketones Negative mg/dL (NEGATIVE) 06/10/16 14:50 Urine Blood Negative (NEGATIVE) 06/10/16 14:50 Urine Nitrate Negative (NEGATIVE) 06/10/16 14:50 Urine Bilirubin Negative (NEGATIVE) 06/10/16 14:50 Urine Urobilinogen 2.0 mg/dL (0.2-1.0) 06/10/16 14:50 Ur Leukocyte Esterase Neg Jovanny/uL (Negative) 06/10/16 14:50 Urine WBC (Auto) 4 /hpf (0-5) 06/10/16 14:50 Urine RBC (Auto) 5 /hpf (0-3) H 06/10/16 14:50 Amorphous Sediment Rare /ul (<OCC) H 06/10/16 14:50 Urine Bacteria Rare (<OCC) 06/10/16 14:50 Hyaline Casts 3-5 /lpf (0-2) H 06/10/16 14:50 HIV 1&2 Antibody Screen Negative (NEGATIVE) 06/10/16 22:02 Influenza Typ A,B (EIA) Negative for flu a/b (NEGATIVE) 06/10/16 16:55 H.influenzae Type B Ag Not required (NEGATIVE) 06/10/16 06:00 Ur L.pneumophila Ag Negative (NEGATIVE) 06/10/16 16:55 N.meningitidis ACY/W135 Not required (NEGATIVE) 06/10/16 06:00 N.meningi B/E.coli K1 Ag Not required (NEGATIVE) 06/10/16 06:00 Group B Strep Antigen Not required (NEGATIVE) 06/10/16 06:00 S. pneumoniae Antigen Negative (NEGATIVE) 06/10/16 06:00 - Hospital Course Hospital Course: On admission: Patient is a 65 year old male with PMHx of COPD, hypercholesterolemia, HTN and DM presenting for fatigue and cough. Most of the history is per patient's son as patient is currently getting a nebulizer treatment and is having trouble keeping his eyes open. Patient returned from his brother's in [place] yesterday. Patient has been very tired and emotionally distressed. Patient had bodyaches yesterday. Patient started coughing yesterday. Cough is productive of yellow phlegm. Patient has had chills and was sweating last night in bed. Patient usually can walk 10 blocks without getting short of breath but has not been able to walk any blocks for past few days. Patient has never been intubated. Patient had flu vaccine this year. Patient noted later that he has not been feeling well ofr a few weeks but has not seen a doctor. Patient's says one of the boarders has been sick. Also of note, patient wet the bed last night. Patient wants nicotine patch to help him quit smoking. Patient denies vision change, headache, chest pain, palpitation, hemoptysis, abdominal pain, nausea, vomiting, diarrhea, constipation, dysuria, rash, back pain and easy bleeding. Hospital Course: On admission, patient met sepsis criteria and was treated with antibiotics , fluids, as well as therapeutic agents to open up patient's airways. Cultures, lactate levels were drawn and monitored accordingly. Patient was spiking fevers off and on for some time however infectious etiologies were ruled out. Patient' s blood pressure managed as well as diabetes. Patient counseled on smoking cessation but not interested at this time. Patient improved. Instructions to follow up with [facility]D and [facility]. This is a brief summary of events. For a complete course, refer to medical record Discharge Exam - Head Exam Head Exam: ATRAUMATIC, NORMAL INSPECTION, NORMOCEPHALIC - Eye Exam Eye Exam: EOMI, Normal appearance Pupil Exam: NORMAL ACCOMODATION, PERRL - ENT Exam ENT Exam: Mucous Membranes Moist - Neck Exam Neck exam: Full Rom - Respiratory Exam Respiratory Exam: Clear to PA & Lateral, NORMAL BREATHING PATTERN - Cardiovascular Exam Cardiovascular Exam: +S1, +S2 - GI/Abdominal Exam GI & Abdominal Exam: Normal Bowel Sounds - Extremities Exam Extremities exam: full ROM - Back Exam Back exam: FULL ROM - Neurological Exam Neurological exam: Alert, CN II-XII Intact, Oriented x3 - Psychiatric Exam Psychiatric exam: Normal Affect, Normal Mood - Skin Skin Exam: Dry, Intact, Normal Color, Warm Discharge Plan - Discharge Medications Prescriptions: Albuterol HFA [Ventolin HFA 90 mcg/actuation (8 g)] 1 puff IH PRN PRN #1 inhaler PRN Reason: Wheezing Amoxicillin/Clavulanate [Augmentin 875 MG-125 MG] 1 tab PO BID #14 tab Fluticasone/Salmeterol 250/50 [Advair Diskus 250/50] 1 puff INH RQ12 #1 inhaler guaiFENesin [Mucinex LA] 600 mg PO BID #28 tab Montelukast [Singulair] 10 mg PO HS #30 tab - Follow Up Plan Condition: IMPROVED Disposition: HOME/ ROUTINE Instructions: Albuterol (By breathing), Guaifenesin (By mouth), Amoxicillin/ Clavulanate Potassium (By mouth), Montelukast (By mouth), Fluticasone/ Salmeterol (By breathing), Heart Healthy Diet (DC), Diabetic Foot Care (DC), COPD (Chronic Obstructive Pulmonary Disease) (DC), Basic Carbohydrate Counting ( DC), Meal Planning with the Plate Method (DC), Meal Planning with Diabetes Exchanges (DC), Weakness (GEN) Additional Instructions: Patient is medically stable for discharge home. Patient is to follow up with [facility] Dr. Galaviz within two weeks for follow up care. Patient should follow up with Primary Medical Dr. Maggie Mcgregor in the [facility] within one week for follow up care. Patient is to be discharged home on the following medications: albuterol, singulair, mucinex, advair, and antibiotic augmentin. Please refer to dosage instructions printed on bottle. Patient should take augmentin for seven days, one pill twice a day. Patient should eat a probiotic yogurt once daily while taking antibiotics. Patient is encouraged to ambulate as much as possible with the use of assistance if necessary. If symptoms return, go to the Emergency room Instructions have been explained to the patient who is aware. Referrals: Raghu Galaviz MD [Staff Provider] - <Nader Wilson - Last Filed: 06/16/16 12:09> Provider - Provider Date of Admission: 06/10/16 15:58 Attending physician: Ernestina Villalta DO Hospital Course - Lab Results Lab Results: Micro Results 06/11/16 15:00 Sputum Gram Stain - Final 06/11/16 15:00 Sputum Sputum Culture - Final NORMAL ORAL ROMI Most Recent Lab Values WBC 12.4 K/uL (4.8-10.8) H 06/15/16 07:30 RBC 4.09 Mil/uL (4.40-5.90) L 06/15/16 07:30 Hgb 12.5 g/dL (12.0-18.0) 06/15/16 07:30 Hct 37.3 % (35.0-51.0) 06/15/16 07:30 MCV 91.1 fL (80.0-94.0) 06/15/16 07:30 MCH 30.6 pg (27.0-31.0) 06/15/16 07:30 MCHC 33.6 g/dL (33.0-37.0) 06/15/16 07:30 RDW 13.9 % (11.5-14.5) 06/15/16 07:30 Plt Count 342 K/uL (130-400) 06/15/16 07:30 MPV 7.7 fL (7.2-11.7) 06/15/16 07:30 Neut % (Auto) 67.3 % (50.0-75.0) 06/15/16 07:30 Lymph % (Auto) 16.1 % (20.0-40.0) L 06/15/16 07:30 Toole % (Auto) 11.6 % (0.0-10.0) H 06/15/16 07:30 Eos % (Auto) 4.3 % (0.0-4.0) H 06/15/16 07:30 Baso % (Auto) 0.7 % (0.0-2.0) 06/15/16 07:30 Neut # 8.4 K/uL (1.8-7.0) H 06/15/16 07:30 Lymph # 2.0 K/uL (1.0-4.3) 06/15/16 07:30 Toole # 1.4 K/uL (0.0-0.8) H 06/15/16 07:30 Eos # 0.5 K/uL (0.0-0.7) 06/15/16 07:30 Baso # 0.1 K/uL (0.0-0.2) 06/15/16 07:30 Neutrophils % (Manual) 75 % (50-75) 06/10/16 13:21 Band Neutrophils % 11 % (0-2) H* 06/10/16 13:21 Lymphocytes % (Manual) 5 % (20-40) L 06/10/16 13:21 Reactive Lymphs % 1 % (0-0) H 06/10/16 13:21 Monocytes % (Manual) 8 % (0-10) 06/10/16 13:21 Platelet Estimate Normal (NORMAL) 06/10/16 13:21 RBC Morphology Normal 06/10/16 13:21 PT 12.9 SECONDS (9.7-12.2) H 06/10/16 13:21 INR 1.2 06/10/16 13:21 APTT 30 SECONDS (21-34) 06/10/16 13:21 D-Dimer, Quantitative 369 ng/mlDDU (0-243) H 06/10/16 17:14 Puncture Site Rra 06/10/16 19:15 pCO2 50 mm/Hg (35-45) H 06/10/16 19:15 pO2 64 mm/Hg (80-100) L 06/10/16 19:15 HCO3 24.7 mmol/L (21-28) 06/10/16 19:15 ABG pH 7.33 (7.35-7.45) L 06/10/16 19:15 ABG Total CO2 27.9 mmol/L (22-28) 06/10/16 19:15 ABG O2 Saturation 94.2 % (95-98) L 06/10/16 19:15 ABG Base Excess -0.1 mmol/L (-2.0-3.0) 06/10/16 19:15 ABG Hemoglobin 11.5 g/dL (11.7-17.4) L 06/10/16 19:15 ABG Carboxyhemoglobin 2.4 % (0.5-1.5) H 06/10/16 19:15 POC ABG HHb (Measured) 5.5 % (0.0-5.0) H 06/10/16 19:15 ABG Methemoglobin 2.0 % (0.0-3.0) 06/10/16 19:15 [place] Test Pos 06/10/16 19:15 VBG pH 7.29 (7.32-7.43) L 06/10/16 15:35 VBG pCO2 55 mmHg (40-60) 06/10/16 15:35 VBG HCO3 23.0 mmol/L 06/10/16 15:35 VBG Total CO2 28.1 mmol/L (22-28) H 06/10/16 15:35 VBG O2 Sat (Calc) 70.3 % (40-65) H 06/10/16 15:35 VBG Base Excess -1.1 mmol/L (0.0-2.0) L 06/10/16 15:35 VBG Potassium 3.3 mmol/L (3.6-5.2) L 06/10/16 15:35 Hgb O2 Saturation 90.1 % (95.0-98.0) L 06/10/16 19:15 Sodium 142.0 mmol/l (132-148) 06/10/16 15:35 Chloride 111.0 mmol/L (98-107) H 06/10/16 15:35 Glucose 177 mg/dl (75-110) H 06/10/16 15:35 Lactate 0.7 mmol/L (0.7-2.1) 06/10/16 15:35 Liter Flow 3.0 06/10/16 19:15 Sodium 135 mmol/L (132-148) 06/15/16 07:30 Potassium 4.1 mmol/L (3.6-5.2) 06/15/16 07:30 Chloride 92 mmol/L (98-107) L 06/15/16 07:30 Carbon Dioxide 33 mmol/L (22-30) H 06/15/16 07:30 Anion Gap 14 (10-20) 06/15/16 07:30 BUN 14 mg/dL (9-20) 06/15/16 07:30 Creatinine 0.8 MG/DL (0.8-1.5) 06/15/16 07:30 Est GFR ( Amer) > 60 06/15/16 07:30 Est GFR (Non-Af Amer) > 60 06/15/16 07:30 POC Glucose (mg/dL) 237 mg/dL (65-110) H 06/15/16 17:00 Random Glucose 190 mg/dL (75-110) H 06/15/16 07:30 Hemoglobin A1c 7.9 % (4.2-6.5) H 06/11/16 08:29 Lactic Acid 0.9 mmol/L (0.7-2.1) 06/10/16 22:02 Calcium 8.8 mg/dl (8.6-10.4) 06/15/16 07:30 Phosphorus 4.5 mg/dL (2.5-4.5) 06/15/16 07:30 Magnesium 2.0 mg/dL (1.6-2.3) 06/15/16 07:30 Total Bilirubin 0.7 mg/dL (0.2-1.3) 06/15/16 07:30 AST 82 U/L (17-59) H D 06/15/16 07:30 ALT 88 U/L (21-72) H D 06/15/16 07:30 Alkaline Phosphatase 74 U/L (38-126) 06/15/16 07:30 NT-Pro-B Natriuret Pep 186 pg/mL (0-900) 06/11/16 08:29 Total Protein 6.7 g/dL (6.3-8.3) 06/15/16 07:30 Albumin 3.5 g/dL (3.5-5.0) 06/15/16 07:30 Globulin 3.1 gm/dL (2.2-3.9) 06/15/16 07:30 Albumin/Globulin Ratio 1.1 (1.0-2.1) 06/15/16 07:30 Triglycerides 124 mg/dL (0-149) 06/12/16 07:04 Cholesterol 131 mg/dL (0-199) 06/12/16 07:04 LDL Cholesterol Direct 71 mg/dL (0-129) 06/12/16 07:04 HDL Cholesterol 30 mg/dL (30-70) 06/12/16 07:04 Procalcitonin 0.16 NG/ML (0.19-0.49) L 06/10/16 16:55 Venous Blood Potassium 3.3 mmol/L (3.6-5.2) L 06/10/16 15:35 Urine Color Yellow (YELLOW) 06/10/16 14:50 Urine Clarity Hazy (Clear) 06/10/16 14:50 Urine pH 5.0 (5.0-8.0) 06/10/16 14:50 Ur Specific Mcdonald 1.019 (1.003-1.030) 06/10/16 14:50 Urine Protein 2+ mg/dL (NEGATIVE) H 06/10/16 14:50 Urine Glucose (UA) 2+ mg/dL (Normal) H 06/10/16 14:50 Urine Ketones Negative mg/dL (NEGATIVE) 06/10/16 14:50 Urine Blood Negative (NEGATIVE) 06/10/16 14:50 Urine Nitrate Negative (NEGATIVE) 06/10/16 14:50 Urine Bilirubin Negative (NEGATIVE) 06/10/16 14:50 Urine Urobilinogen 2.0 mg/dL (0.2-1.0) 06/10/16 14:50 Ur Leukocyte Esterase Neg Jovanny/uL (Negative) 06/10/16 14:50 Urine WBC (Auto) 4 /hpf (0-5) 06/10/16 14:50 Urine RBC (Auto) 5 /hpf (0-3) H 06/10/16 14:50 Amorphous Sediment Rare /ul (<OCC) H 06/10/16 14:50 Urine Bacteria Rare (<OCC) 06/10/16 14:50 Hyaline Casts 3-5 /lpf (0-2) H 06/10/16 14:50 HIV 1&2 Antibody Screen Negative (NEGATIVE) 06/10/16 22:02 Influenza Typ A,B (EIA) Negative for flu a/b (NEGATIVE) 06/10/16 16:55 H.influenzae Type B Ag Not required (NEGATIVE) 06/10/16 06:00 Ur L.pneumophila Ag Negative (NEGATIVE) 06/10/16 16:55 N.meningitidis ACY/W135 Not required (NEGATIVE) 06/10/16 06:00 N.meningi B/E.coli K1 Ag Not required (NEGATIVE) 06/10/16 06:00 Group B Strep Antigen Not required (NEGATIVE) 06/10/16 06:00 S. pneumoniae Antigen Negative (NEGATIVE) 06/10/16 06:00 Attending/Attestation - Attestation I have personally seen and examined this patient.: Yes I have fully participated in the care of the patient.: Yes I have reviewed all pertinent clinical information, including history, physical exam and plan: Yes Notes (Text): 06/16/16 12:05 Medical attending: Patient was seen and examined by me, agrees the above note by medical attendant. Patient will need to continue on several more days of by mouth antibiotics - augmentin PO BID As well as take medication for his breathing including Advair, Singulair, nebulizers
[2016-06-15] MEDS: Moxifloxacin IV 400mg/250ml NS 400 MG/250 ML BAG IVPB SCH (14:24)
[2016-06-15 16:25] VITALS: BP 119/70; TEMP 99.4; O2SAT 94
[2016-06-15 18:46] VITALS: PULSE 76
== END 2016-06-15 19:30 | disposition home or self-care (01) | DRG 584 ==
LOC: C.ER 12:28 → C.9E 15:58 → C.6T 18:04
PROVIDERS: ADMIT Hospitalist; ATTEND Hospitalist
DX: A41.9 Sepsis, unspecified organism (principal); J18.9 Pneumonia, unspecified organism; J44.1 Chronic obstructive pulmonary disease with (acute) exacerbation; J44.0 Chronic obstructive pulmonary disease with (acute) lower respiratory infection; J21.9 Acute bronchiolitis, unspecified; G47.33 Obstructive sleep apnea (adult) (pediatric); F17.200 Nicotine dependence, unspecified, uncomplicated; I10 Essential (primary) hypertension; E11.9 Type 2 diabetes mellitus without complications; E78.5 Hyperlipidemia, unspecified; E78.00 Pure hypercholesterolemia, unspecified; K59.00 Constipation, unspecified; Z79.84 Long term (current) use of oral hypoglycemic drugs; Z79.4 Long term (current) use of insulin; Z82.49 Family history of ischemic heart disease and other diseases of the circulatory system